=== PATIENT | male | born 1945 | race Caucasian/White ===

== ENCOUNTER 2019-11-07 09:40 | Emergency (ER) | payer MEDICARE, SELFPAY ==
[2019-11-07 09:46] VITALS: BP 96/64; PULSE 104; RESP 16; TEMP 37.2; O2SAT 99
--- NOTE | 2019-11-07 09:53 | ED.MALEGU ---
HPI - Male Genitourinary General Chief complaint: Urogenital-Male Stated complaint: prostrate infection Time Seen by Provider: 11/07/19 09:53 Source: patient Mode of arrival: ambulatory Limitations: no limitations History of Present Illness HPI Narrative: Jose Guadalupe Bella is a 73 yo male with a PMH of HTN, chronic anticoagulation, A. fib , rheumatoid arthritis, gout,who comes to express care for complaints of prostate infection and dizziness. Patient started having urinary symptoms last evening usually has problem with poor strength of flow and pain- and sees a urologist; he states that is a recurrence of his symptoms for him and had similar symptoms last year Related Data Home Medications Medication Instructions Recorded Confirmed Embrel 11/07/19 Htn Medication 11/07/19 Xarelto 11/07/19 Allergies Allergy/AdvReac Type Severity Reaction Status Date / Time No Known Allergies Allergy Verified 11/07/19 10:06 Review of Systems Review of Systems: Narrative: CONSTITUTIONAL: Denies fever, chills, sweats. EYES: Denies visual changes, redness, discharge. ENT: Denies rhinorrhea, congestion, sore throat, otalgia. CARDIOVASCULAR: Denies chest pain, palpitations, edema. RESPIRATORY: Denies dyspnea, wheezing, cough GASTROINTESTINAL: Denies abdominal pain, nausea, vomiting, diarrhea. GENITOURINARY: Has dysuria, no hematuria, abnormal discharge SKIN: Denies rash or itching. NEUROLOGIC: Denies numbness, or focal weakness. PSYCHIATRIC: Denies anxiety or depression. PMFSH Family History Family History (Updated 11/07/19 @ 10:10 by Betsy Beverly CNP) Other Heart disease Hypertension Social History Social History (Updated 11/07/19 @ 10:11 by Betsy Beverly CNP) Smoking status: Former smoker Alcohol intake: current Comments At time of signature, I agree with nursing past medical, surgical, social and family history. There is no relevant family history pertinent to the presenting complaint. Exam Narrative: Exam Narrative: GENERAL: This is a well-nourished, well-developed patient, in mild distress. HEAD: normocephalic, atraumatic. EYES: Sclera clear/white. Vision is grossly intact. EARS: External ears normal, auditory canals clear and without drainage, TMs normal without perforation. Hearing grossly intact. NOSE: External nose normal without nasal discharge, nares without redness, no rhinorrhea. THROAT: Mucous membranes moist, posterior pharynx NECK: Neck supple, non-tender CARDIOVASCULAR: Tachycardic rate and rhythm without murmurs, gallops, or rubs. Patient is also hypotensive RESPIRATORY: Clear to auscultation. Breath sounds equal bilaterally. No wheezes, rales, or rhonchi. GASTROINTESTINAL: Abdomen soft, non-tender, SKIN: warm, intact with no suspicious lesions or rash, good texture and turgor. NEURO: awake, alert, and oriented to person, place and time. There were no obvious focal neurologic abnormalities. Steady gait EXTREMITIES: Normal range of motion. BACK: Nontender without deformity Course Course Emergency Course: UA-m results show blood and urine along with positive for nitrite and leukocyte Started on ciprofloxacin Patient is hypotensive and needs at least IV fluids patient is being referred to the emergency room Vital Signs Vital signs: Vital Signs Temperature 98.9 F 11/07/19 09:46 Pulse Rate 104 H 11/07/19 09:46 Respiratory Rate 16 11/07/19 09:46 Blood Pressure 96/64 L 11/07/19 09:46 Pulse Oximetry 99 11/07/19 09:46 Temperature 98.9 F 11/07/19 09:46 Pulse Rate 104 H 11/07/19 09:46 Respiratory Rate 16 11/07/19 09:46 Blood Pressure 96/64 L 11/07/19 09:46 Pulse Oximetry 99 11/07/19 09:46 MDM - Male Genitourinary Differential Diagnosis Differential diagnosis: Likely urinary tract infection, prostatitis and other Lab Data Labs: Urine Glucose Negative Reference Range: Negative Urine Bilirubin Nega
[2019-11-07 09:56] VITALS: BP 94/64; PULSE 100
== END 2019-11-07 10:25 | disposition short-term general hospital (02) ==
PROVIDERS: Emergency Provider Nurse Practitioner; PCP Family Medicine
DX: N30.01 Acute cystitis with hematuria (principal); Z87.891 Personal history of nicotine dependence; I10 Essential (primary) hypertension; I48.91 Unspecified atrial fibrillation; M06.9 Rheumatoid arthritis, unspecified; M10.9 Gout, unspecified; Z79.01 Long term (current) use of anticoagulants
CPT/HCPCS: 81003; 87077; 87086; 87088; 87186; 99213; G0463

== ENCOUNTER 2019-11-07 11:20 | Emergency (ER) | payer MEDICARE, SELFPAY ==
--- NOTE | ~2019-11-07 | XR_ITS ---
EXAMINATION: XR chest 2V DATE: 11/07/2019 12:16 INDICATION: Lightheadedness. Urinary tract infection. TECHNIQUE: Frontal and lateral views of the chest were obtained. COMPARISON: Chest single view 03/15/2016, chest CT 03/22/2016 FINDINGS: A calcified right lung nodule and calcified right hilar lymph nodes are consistent with old granulomatous disease. No pleural effusion or pneumothorax. The heart size is normal. There is a pro minent left paracardial fat pad. There is mild chronic anterior wedging of multiple thoracic vertebra l bodies. IMPRESSION: 1. No acute cardiopulmonary disease. Reviewed, dictated and finalized at location A.
[2019-11-07 11:26] VITALS: BP 127/82; PULSE 83; RESP 18; TEMP 37.4; O2SAT 99
--- NOTE | 2019-11-07 11:50 | ECG_ITS ---
Measurements Intervals [place] Rate: 93 P: SC: 0 QRS: -38 QRSD: 113 T: 216 QT: 346 QTc: 432 Interpretive Statements ATRIAL FIBRILLATION LEFT AXIS DEVIATION INCOMPLETE RIGHT BUNDLE BRANCH BLOCK BASELINE WANDER- I, II ,AVR, AVL, AVF, V1-V3 ABNORMAL ECG Electronically Signed On 11-07-2019 12:46:49 CDT by Khris Decker D.O.
[2019-11-07 12:03] VITALS: BP 116/84; BP 117/82; PULSE 90; PULSE 96
[2019-11-07 12:04] VITALS: BP 116/84; PULSE 92
[2019-11-07 12:21] LABS: Basophils Absolute Auto 0.1 K/mm3 (0.0-0.1); Basophils Percent Auto 0.3 % (0.2-1.2); Hematocrit 46.7 % (42.0-52.0); Hemoglobin 15.8 g/dL (14.0-18.0); Immature Granulocyte Percent A 0.9 % (0-0.5); Lymphocytes Absolute Auto 0.74 K/mm3 (0.9-3.2); Lymphocytes Percent Auto 3.3 % (18.3-44.2); Mean Corpuscular HGB Conc 33.8 g/dl (32-36); Mean Corpuscular Hemoglobin 33.1 pg (26-34); Mean Corpuscular Volume 97.9 fl (80-100); Monocytes Absolute Auto 2.4 K/mm3 (0.1-0.6); Neutrophils Absolute Auto 18.6 K/mm3 (1.3-6.7); Neutrophils Percent Auto 84.5 % (45.5-73.1); Platelet Count Result 169 k/mm3 (150-375); Red Blood Count 4.77 M/mm3 (4.6-6.20); Red Cell Distribution Width 13.5 % (11.5-14.5); White Blood Count 22.1 K/mm3 (4.5-10.0)
--- NOTE | 2019-11-07 12:21 | ED.MALEGU ---
HPI - Male Genitourinary General Chief complaint: Urogenital-Male <Lis Bella PA-C - Last Filed: 11/07/19 14:01> Stated complaint: hypotension, possible uti from UC <ERMA Mccloud Last Filed: 11/07/19 14:01> Time Seen by Provider: 11/07/19 11:42 <ERMA Mccloud Last Filed: 11/07/19 14:01> Source: patient <ERMA Mccloud Last Filed: 11/07/19 14:01> Mode of arrival: ambulatory <ERMA Mccloud Last Filed: 11/07/19 14:01> Limitations: no limitations <ERMA Mccloud Last Filed: 11/07/19 14:01> History of Present Illness HPI Narrative: This is a 73-year-old male that presents the emergency department for urinary tract infection. Reports he was seen at urgent care this morning and sent here for further evaluation due to low blood pressure. Reports since yesterday he has had urinary frequency and dysuria. Also reports he is felt lightheaded today. Reports he has not eaten anything yet today. Denies fever, chest pain, shortness of breath, abdominal pain, vomiting, or hematuria. <ERMA Mccloud Last Filed: 11/07/19 14:01> Related Data Home medications: Home Medications Medication Instructions Recorded Confirmed Embrel 11/07/19 Htn Medication 11/07/19 Xarelto 11/07/19 <ERMA Mccloud Last Filed: 11/07/19 14:01> Allergies/Adverse reactions: Allergies Allergy/AdvReac Type Severity Reaction Status Date / Time No Known Allergies Allergy Verified 11/07/19 11:34 <ERMA Mccloud Last Filed: 11/07/19 14:01> Review of Systems Review of Systems: Narrative: CONSTITUTIONAL: Denies fever CARDIOVASCULAR: Denies chest pain RESPIRATORY: Denies dyspnea. GASTROINTESTINAL: Denies abdominal pain, nausea, vomiting GENITOURINARY: Reports dysuria. Denies hematuria. <ERMA Mccloud Last Filed: 11/07/19 14:01> All systems reviewed & are unremarkable except as noted in HPI and below <Lis Bella PA-C - Last Filed: 11/07/19 14:01> PMFSH Past Medical History Medical History: Medical History (Updated 11/07/19 @ 13:59 by Lis Bella PA-C) A-fib Rheumatoid arthritis <Lis Bella PA-C - Last Filed: 11/07/19 14:01> Family History Family History: Family History (Updated 11/07/19 @ 10:10 by Betsy Beverly CNP) Other Heart disease Hypertension <Lis Bella PA-C - Last Filed: 11/07/19 14:01> Social History Social History: Social History (Updated 11/07/19 @ 10:11 by Betsy Beverly CNP) Smoking status: Former smoker Alcohol intake: current Gender identity (if verbalized by the patient): Male <Lis Bella PA-C - Last Filed: 11/07/19 14:01> Exam Narrative: Exam Narrative: GENERAL: Well-appearing, well-nourished, and in no acute distress. HEAD: Normocephalic, atraumatic. EYES: PERRLA and EOMI. ENT: Nares clear, no rhinorrhea or epistaxis. Mucous membranes moist. Oropharynx without tonsillar hypertrophy exudate or other lesions. Bilateral TMs pearly schofield non-bulging NECK: Supple. No adenopathy or masses. CHEST: Clear to auscultation. No respiratory distress. No wheezes rales or rhonchi HEART: Regular rate and rhythm. No murmur heard. Normal peripheral pulses. ABDOMEN: Soft, nontender, nondistended, normal active bowel sounds. EXTREMITIES: Normal range of motion. No edema. Strength equal in bilateral upper extremities (5/5) SKIN: Warm, dry, no rash. NEURO: No focal deficits. Alert and oriented x3. Cranial nerves II through XII grossly intact PSYCH: Normal mood and affect <Lis Bella PA-C - Last Filed: 11/07/19 14:01> Course Consultations Consultation #1: I did speak with patient's on-call urologist about workup. Patient is to follow-up in clinic on Saturday. <Lis Bella PA-C - Last Filed: 11/07/19 14:01> Date: 11/07/19 <Lis Bella PA-C - Last Filed: 11/07/19 14:01> Time: 13:59 <Lis Schneider
[2019-11-07 12:25] LABS: Add Urine Microscopic? YES; Appearance Urine Cloudy (Clear); Bacteria Urine Trace /hpf; Bilirubin Urine Negative (Negative); Blood Urine 1+ (Negative); Color Urine Amber (Yellow); Glucose Urine UA Negative (Negative); Ketones Urine Negative (Negative); Leukocyte Esterase Ur 1+ LEU/UL (Negative); Mucus Urine Rare /lpf; Nitrate Urine Positive (Negative); Protein Urine 1+ mg/dL (Negative); Specific Grav Ur 1.014 (1.001-1.035); Squamous Epithelial Cell Urine Occasional /hpf (Few); Urobilinogen Urine Negative mg/dL (<2.0); WBC Urine 21-30 /hpf
[2019-11-07 12:31] LABS: Lactic Acid Reflex 1.3 mmol/L (0.7-2.1)
[2019-11-07 12:37] LABS: Anion Gap 7 mmol/L (8-16); Blood Urea Nitrogen 27 mg/dL (9-20); CRP 7.4 mg/dL (<1.0); Calcium 9.4 mg/dL (8.4-10.2); Carbon Dioxide 23 mmol/L (22-30); Chloride 105 mmol/L (98-107); Estimated CRCL calculation 47 ml/min; Estimated Glomerular Filt Rate 46; Glucose 156 mg/dL (75-110); Potassium 4.4 mmol/L (3.4-5.0); Sodium 135 mmol/L (137-145)
[2019-11-07] MEDS: SODIUM CHLORIDE 0.9% IV 1,000 ML 999 ML IV CONT (13:18)
== END 2019-11-07 14:19 | disposition home or self-care (01) ==
PROVIDERS: Physician Assistant; Emergency Provider General Practice; PCP Family Medicine
DX: N41.0 Acute prostatitis (principal); Z87.891 Personal history of nicotine dependence; B96.20 Unspecified Escherichia coli [E. coli] as the cause of diseases classified elsewhere
CPT/HCPCS: 36415; 71046; 80048; 81001; 81003; 83605; 85025; 86140; 87040; 87077; 87086; 87088; 87186; 93005; 96365; 99284; J1956; J7030

== ENCOUNTER 2020-04-07 09:02 | Emergency (ER) | payer MEDICARE, SELFPAY ==
--- NOTE | 2020-04-07 09:04 | ED.GENADULT ---
HPI - General Adult General Chief complaint: Syncope Stated complaint: Poss uti Time Seen by Provider: 04/07/20 09:04 Source: patient Mode of arrival: ambulatory Limitations: no limitations History of Present Illness HPI narrative: 74-year-old male patient presents to the [facility] with complaints of weakness and urinary symptoms. Patient states that he has had a little bit of frequency and a little bit of pain with urination and yesterday he got very weak and fell. Denies any loss of consciousness or hitting his head but states he did hit his left side of his ribs. Patient states that he tends to get weakness like this whenever he has a prostate infection and has been treated for this before in the past. Patient also has a history of A. fib states he is in constant A. fib but denies any chest pain or shortness of breath at this time. Denies any lightheadedness, dizziness. Denies any fevers, body aches or chills. Patient states he was given Augmentin antibiotic by his urologist and instructed to take that whenever his symptoms of prostate infection started. Last time patient was seen and they both also [facility] for similar symptoms they did start him on Cipro and send him to the ER for further evaluation. The ER did want to admit him for IV antibiotics however he refused due to the fact that he has a that has dementia. Related Data Home Medications Medication Instructions Recorded Confirmed Embrel 11/07/19 Htn Medication 11/07/19 Xarelto 11/07/19 Allergies Allergy/AdvReac Type Severity Reaction Status Date / Time No Known Allergies Allergy Verified 11/07/19 11:34 Review of Systems Review of Systems: Narrative: CONSTITUTIONAL: Denies fever, chills, or sweats. EYES: Denies visual changes, redness, or discharge. ENT: Denies rhinorrhea, congestion, sore throat, or otalgia. CARDIOVASCULAR: Denies chest pain, palpitations, or edema. RESPIRATORY: Denies cough or dyspnea. GASTROINTESTINAL: Denies abdominal pain, nausea, vomiting, or diarrhea. GENITOURINARY: Positive dysuria, denies gross hematuria. Positive frequency SKIN: Denies rash or itching. MUSCULOSKELETAL: Denies back pain, joint pain, or myalgia. NEUROLOGIC: Denies headache, numbness, positive weakness with fall PSYCHIATRIC: Denies anxiety or depression. [facility] Past Medical History Medical History (Updated 04/07/20 @ 09:58 by PAU Gorman) A-fib Chronic anticoagulation Gout Hypertension Rheumatoid arthritis Family History Family History Other Heart disease Hypertension Social History Social History Smoking status: Former smoker Alcohol intake: current Gender identity (if verbalized by the patient): Male Comments At the time of my signature I agree with nursing past medical history, surgical, social, and family history. There is no relevant family history pertinent to the presenting complaint. Exam Narrative: Exam Narrative: GENERAL: Well-appearing, well-nourished, and in no acute distress. HEAD: Normocephalic, atraumatic. EYES: PERRLA and EOMI. ENT: Nares clear, no rhinorrhea or epistaxis. Mucous membranes moist. NECK: Supple. No lymphadenopathy CHEST: Clear to auscultation. No respiratory distress. Patient has left-sided anterior rib tenderness noted over the eighth ninth and 10th rib. HEART: irRegular rate and rhythm. No murmur heard. Normal peripheral pulses. ABDOMEN: Soft, nontender, nondistended, normal active bowel sounds. EXTREMITIES: Normal range of motion. No edema. SKIN: Warm, dry, no rash. NEURO: Alert and oriented x4, GCS 15. Cranial nerves II through XII grossly intact. No focal neurological deficits. Normal muscle strength and tone. Normal deep tendon reflexes. Negative Babinski, normal finger to nose coordination he had normal heel to balbuena glide. Speech is clear. Normal gait. Negative Romberg and no
[2020-04-07 09:08] VITALS: BP 96/76; PULSE 62; RESP 20; TEMP 36.2; O2SAT 100
--- NOTE | 2020-04-07 09:14 | ECG_ITS ---
Measurements Intervals [place] Rate: 94 P: CO: 0 QRS: -52 QRSD: 101 T: 38 QT: 351 QTc: 441 Interpretive Statements ATRIAL FIBRILLATION LEFT ANTERIOR FASCICULAR BLOCK BASELINE ARTIFACT- I, II, AVR, AVL, AVF, V6 ABNORMAL ECG Electronically Signed On 04-28-2020 11:47:37 SITE SPECIALIST by Khris Decker D.O.
== END 2020-04-07 09:55 | disposition short-term general hospital (02) ==
PROVIDERS: Emergency Provider Nurse Practitioner Family; PCP Family Medicine
DX: R53.1 Weakness (principal); R35.0 Frequency of micturition; R30.0 Dysuria; I48.91 Unspecified atrial fibrillation; Z79.01 Long term (current) use of anticoagulants; M10.9 Gout, unspecified; I10 Essential (primary) hypertension; M06.9 Rheumatoid arthritis, unspecified; Z87.891 Personal history of nicotine dependence
CPT/HCPCS: 81003; 87086; 93005; 99213; G0463

== ENCOUNTER 2020-04-07 10:59 | Observation (INO) | payer MEDICARE, SELFPAY ==
[2020-04-07] VITALS (38 sets, daily range): BP systolic 102–143; BP diastolic 75–99; PULSE 65–114; RESP 12–20; TEMP 35.7–37.4; O2SAT 96–100; BMI 27.5
--- NOTE | ~2020-04-07 | XR_ITS ---
EXAMINATION: XR ribs LT 2V w CXR 2V INDICATION: Left chest pain after fall TECHNIQUE: PA and lateral views of the chest and 3 views of the left ribs were obtained. COMPARISON: 11/10/2019; CT, 03/22/2016 FINDINGS: The lungs are free of acute opacities. There is no pleural effusion or pneumothorax. A calc ified nodule of the right middle lobe is consistent with old granulomatous disease. The cardiomediast inal silhouette is normal. There is mild thoracic spondylosis. When compared to prior CT examination, old fractures of the left fourth through sixth ribs are noted. No definite acute rib fracture is stan ntified. IMPRESSION: 1. No acute cardiopulmonary abnormality or evidence of acute displaced rib fracture. Reviewed, dictated and finalized at location A. HING CUTTER IMPRESSION: 1. No acute cardiopulmonary abnormality or evidence of acute displaced rib frac ture.
--- NOTE | ~2020-04-07 | US_ITS ---
EXAMINATION: US carotid duplex BI DATE: 04/08/2020 11:17 INDICATION: Syncope. TECHNIQUE: Grayscale, color Doppler, and pulsed Doppler images of the cervical carotid arteries were obtained. The degree of vessel stenosis is placed in one of the following categories: normal, <50%, 5 0-69%, >=70% but less than near-occlusion, near-occlusion, or total occlusion. Note that percent sten osis relative to normal distal artery lumen diameter is indirectly measured from velocity measurement s as described by Ishan, et al. Radiology 2003; 229:340-346. COMPARISON: None. FINDINGS: RIGHT: The right common carotid artery (CCA) peak systolic velocity (PSV) is 63 cm/s. The right internal car otid artery (ICA) PSV is 59 cm/s. The right ICA end-diastolic velocity (EDV) is 25 cm/s. The right IC A/CCA PSV ratio is 1.0. Grayscale and color Doppler images yield an estimate of <50% diameter reducti on from plaque in the ICA. There is antegrade flow in the right vertebral artery. LEFT: The left CCA PSV is 46 cm/s. The left ICA PSV is 50 cm/s. The left ICA EDV is 27 cm/s. The left ICA/C CA PSV ratio is 1.1. Grayscale and color Doppler images yield an estimate of <50% diameter reduction from plaque in the ICA. There is antegrade flow in the left vertebral artery. IMPRESSION: 1. <50% stenosis in the right internal carotid artery. 2. <50% stenosis in the left internal carotid artery. Reviewed, dictated and finalized at location A. ICATION DISTRIBUTOR
--- NOTE | ~2020-04-07 | CT_ITS ---
EXAMINATION: CT abdomen pelvis w con EXAM DATE: 04/07/2020 14:07 INDICATION: Left-sided abdominal pain. States fell yesterday. TECHNIQUE: Spiral CT of the abdomen and pelvis was performed following intravenous injection of 100 m L Omnipaque 350. Axial, coronal and sagittal images were reviewed. The dose-length product (DLP) fo r this examination was 1195.26 mGy-cm. The exposure was tailored according to patient size (auto mA exposure control), and iterative reconstruction (ASIR) was used as additional dose reduction techniqu e. There is no prior study for comparison. FINDINGS: The liver, spleen, adrenal glands and pancreas are unremarkable. Gallbladder is unremarkab le. No biliary obstruction. Numerous renal cysts bilaterally, could indicate autosomal dominant roberto carlos ycystic kidney disease, with the right kidney measuring 20 cm in craniocaudal dimension and the left measuring 22 cm. No hydronephrosis. The prostate is unremarkable. The bladder is unremarkable. The re is no retroperitoneal or pelvic lymphadenopathy. There is moderate scattered arteriosclerotic di sease. Possible identification of an unremarkable appendix. No pericecal inflammation. There is small to mo derate-sized gastroesophageal hiatal hernia. There is mild to moderate sigmoid colonic diverticulosis . There is no adjacent inflammatory change to suggest diverticulitis. There is expected amount of co lonic stool. No free intraperitoneal gas. The heart is normal in size. There are no pericardial or pleural effusions. The lung bases are unremarkable. Possible acute nondisplaced left 6th and 7th rib fractures anterolaterally. IMPRESSION: 1. Possible acute nondisplaced left 6th and 7th rib fractures anterolaterally. 2. Enlarged multicystic kidneys could indicate autosomal dominant polycystic kidney disease. 3. Small gastroesophageal hiatal hernia. 4. Mild to moderate sigmoid diverticulosis. Reviewed, dictated and finalized at location B. AL ECONOMIST IMPRESSION: 1. Possible acute nondisplaced left 6th and 7th rib fractures anterolaterally. 2. Enlarged multicystic kidneys could indicate autosomal dominant polycystic k idney disease. 3. Small gastroesophageal hiatal hernia. 4. Mild to moderate sigmoid diverticulosis.
--- NOTE | ~2020-04-07 | CT_ITS ---
EXAMINATION: CT brain wo con DATE: 04/07/2020 17:55 INDICATION: Follow-up post syncopal episode with persistent weakness TECHNIQUE: Computed tomography (CT) of the head was performed without intravenous contrast. Sagittal and coronal reconstructions were performed. The mA was adjusted according to patient size. Iterative reconstruction technique was employed. The dose-length product was 681.00 mGy-cm. COMPARISON: None FINDINGS: No fracture. No acute intracranial hemorrhage, acute infarction or abnormal extra axial fluid collect ion. Symmetric prominence of the sulci and arachnoid spaces overlying the convexities consistent with mild age-appropriate diffuse cerebral volume loss. Ventricles are normal and symmetric. No mass/mass effect. Mild mucosal thickening the bilateral ethmoid and right maxillary sinuses. The orbits and ma stoid air cells are normal. Intracranial calcified cerebral atherosclerosis is noted. IMPRESSION: 1. Diffuse mild likely age-related cerebral volume loss. No fracture or acute intracranial process. Reviewed, dictated and finalized at location A. NSIGNMENT CLERK IMPRESSION: 1. Diffuse mild likely age-related cerebral volume loss. No fracture or acute i ntracranial process.
--- NOTE | 2020-04-07 11:14 | ECG_ITS ---
Measurements Intervals [place] Rate: 86 P: [place]: 0 QRS: -54 QRSD: 101 T: 29 QT: 354 QTc: 425 Interpretive Statements ATRIAL FIBRILLATION LEFT AXIS DEVIATION RSR' IN V1 OR V2, CONSIDER RIGHT VENTRICULAR HYPERTROPHY OR RIGHT VCD ABNORMAL ECG Electronically Signed On 04-07-2020 11:32:31 TERRITORY SERVICE REPRESENTATIVE by Khris Decker D.O.
[2020-04-07 11:51] LABS: Anion Gap 9 mmol/L (8-16); Blood Urea Nitrogen 32 mg/dL (9-20); Calcium 9.2 mg/dL (8.4-10.2); Carbon Dioxide 23 mmol/L (22-30); Chloride 104 mmol/L (98-107); Estimated CRCL calculation 41 ml/min; Estimated Glomerular Filt Rate 40; Glucose 119 mg/dL (75-110); Sodium 136 mmol/L (137-145)
[2020-04-07 12:08] LABS: Basophils Absolute Auto 0.1 K/mm3 (0.0-0.1); Basophils Percent Auto 1.2 % (0.2-1.2); Eosinophils Absolute Auto 0.5 K/mm3 (0-0.3); Hematocrit 48.5 % (42.0-52.0); Hemoglobin 16.2 g/dL (14.0-18.0); Immature Granulocyte Absolute 0.17 K/mm3 (0.00-0.031); Immature Granulocyte Percent A 2.2 % (0-0.5); Lymphocytes Absolute Auto 1.13 K/mm3 (0.9-3.2); Lymphocytes Percent Auto 14.8 % (18.3-44.2); Mean Corpuscular HGB Conc 33.4 g/dl (32-36); Mean Corpuscular Hemoglobin 32.8 pg (26-34); Mean Corpuscular Volume 98.2 fl (80-100); Mean Platelet Volume 10.2 fl (7.4-10.4); Monocytes Absolute Auto 1.8 K/mm3 (0.1-0.6); Monocytes Percent Auto 23.8 % (2.6-8.5); Platelet Count Result 171 k/mm3 (150-375); Red Blood Count 4.94 M/mm3 (4.6-6.20); Red Cell Distribution Width 13.5 % (11.5-14.5); White Blood Count 7.6 K/mm3 (4.5-10.0)
--- NOTE | 2020-04-07 12:35 | PC.NURSE ---
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 states he does remember feeling weak just prior to LOC. denies head injury. does have some rib pain. alert. oriented. hx of 2 previous episodes, 1 in 2019 and 1 in 2019. no actual diagnosis. hx of afib and RA.
--- NOTE | 2020-04-07 12:50 | PC.NURSE ---
SL inserted. labs drawn. patient on cardiac technologist. call light in reach. nephew in room now. updated on current treatment plan.
--- NOTE | 2020-04-07 12:50 | PC.NURSE ---
IVF started. has order for orthostatic vitals. patient updated.
[2020-04-07] MEDS: SODIUM CHLORIDE 0.9% IV 1,000 ML 999 ML IV CONT ×2 (13:02→15:15)
[2020-04-07 13:24] LABS: CRP 0.5 mg/dL (<1.0)
[2020-04-07 15:12] LABS: Add Urine Microscopic? YES; Appearance Urine Clear (Clear); Bilirubin Urine Negative (Negative); Blood Urine Negative (Negative); Color Urine Yellow (Yellow); Glucose Urine UA Negative (Negative); Ketones Urine Negative (Negative); Leukocyte Esterase Ur Negative LEU/UL (Negative); Nitrate Urine Negative (Negative); Protein Urine 1+ mg/dL (Negative); Specific Grav Ur 1.016 (1.001-1.035); Squamous Epithelial Cell Urine Occasional /hpf (Few); Urobilinogen Urine Negative mg/dL (<2.0); WBC Urine 0-3 /hpf
--- NOTE | 2020-04-07 15:20 | PC.NURSE ---
2nd liter of NS started per order. will recheck orthostatic vitals after completed. more ice water given. denies any other needs.
--- NOTE | 2020-04-07 16:52 | PC.NURSE ---
2nd orthostatic vitals done and documented. nephew still in room. waiting for further orders from provider vs disposition.
--- NOTE | 2020-04-07 17:03 | ED.DIZZY ---
HPI - Dizziness General Chief Complaint: Syncope Stated Complaint: Syncope Time Seen by Provider: 04/07/20 12:43 Source: patient Mode of arrival: ambulatory Limitations: no limitations History of Present Illness HPI Narrative: Patient is 74-year-old male who presents with family from urgent care for evaluation of weakness fatigue and syncope patient was with a friend yesterday and had syncope falling to the ground and has since had left rib pain. Patient denies similar occurrence in the past. Patient denies any recent illness vomiting diarrhea. Patient thought he might potentially have a prostate issue and started taking antibiotic prophylactically. Patient denies any urinary symptoms. Patient notes moderate aching pain to the left ribs worse with activity and movement. Patient notes that his pain seems to be worse with movement also he experiences worsening fatigue and dizziness with standing Related Data Home Medications Medication Instructions Recorded Confirmed allopurinol 300 mg PO DAILY 04/07/20 04/07/20 enalapril maleate 10 mg PO QPM 04/07/20 04/07/20 enalapril maleate 20 mg PO QAM 04/07/20 04/07/20 etanercept [Enbrel] 50 mg SUBCUT WEEKLY 04/07/20 04/07/20 metoprolol tartrate 50 mg PO DAILY 04/07/20 04/07/20 omega 4-qxs-dyd-fish oil [Fish Oil] 1 cap PO DAILY 04/07/20 04/07/20 omeprazole 20 mg PO DAILY 04/07/20 04/07/20 rivaroxaban [Xarelto] 15 mg PO DAILY 04/07/20 04/07/20 tamsulosin 0.4 mg PO DAILY 04/07/20 04/07/20 vitamin E (dl, acetate) 400 unit PO DAILY 04/07/20 04/07/20 Allergies Allergy/AdvReac Type Severity Reaction Status Date / Time No Known Allergies Allergy Verified 04/07/20 10:36 Review of Systems Review of Systems: All systems reviewed & are unremarkable except as noted in HPI and below PMFSH Past Medical History Medical History A-fib Chronic anticoagulation Gout Hypertension Rheumatoid arthritis Family History Family History Other Heart disease Hypertension Social History Social History Smoking status: Former smoker Alcohol intake: current Gender identity (if verbalized by the patient): Male Exam Narrative: Exam Narrative: GENERAL: Well-appearing, well-nourished, and in no acute distress. HEAD: Normocephalic, atraumatic. EYES: PERRLA and EOMI. ENT: Nares clear, no rhinorrhea or epistaxis. Mucous membranes moist. NECK: Supple. No adenopathy or masses. CHEST: Clear to auscultation. No respiratory distress. No wheezes rales or rhonchi. Tenderness of the anterior left lateral lower ribs HEART: Irregularly irregular rate and rhythm. No murmur heard. Normal peripheral pulses. ABDOMEN: Soft, left upper abdomen tenderness to palpation remainder of abdomen nontender, nondistended, normal active bowel sounds. EXTREMITIES: Normal range of motion. No edema. SKIN: Warm, dry, no rash. NEURO: No focal deficits. Alert and oriented x3. Cranial nerves II through XII grossly intact. Normal speech PSYCH: Normal mood and affect. Course Course Emergency Course: Patient in the room aware of case findings treatment plan and diagnosis patient will be kept overnight for observation on telemetry floor given the syncope and collapse and continuing to feel weak with standing and ambulation no high risk changes in the evaluation patient obviously a fall risk given the fractured ribs. ABCs and vital signs intact and stable at this time. Patient is orthostatic after hydration Consultations Consultation #1: Discussed case with Brittnee the hospitalist who is agreed to accept the patient Date: 04/07/20 Time: 17:16 Vital Signs Vital signs: Vital Signs Temperature 96.3 F L 04/07/20 11:25 Pulse Rate 95 04/07/20 11:25 Respiratory Rate 18 04/07/20 11:25 Blood Pressure 115/99 H 04/07/20 11:25 Pulse Oximetry 100 04/07/20
--- NOTE | 2020-04-07 17:30 | PC.NURSE ---
provider planning for admission. patient is aware.
--- NOTE | 2020-04-07 18:04 | PC.NURSE ---
patient assigned to RECONCILIATION MACHINE OPERATOR-4. SBAR completed and faxed and tubed to RECONCILIATION MACHINE OPERATOR.
--- NOTE | 2020-04-07 18:35 | PC.NURSE ---
report called to Prachi VÁSQUEZ in the [facility]. patient room 4 via wheelchair and monitor. all belongings sent with patient.
--- NOTE | 2020-04-07 20:30 | ADMGEN ---
This patient, Jose Guadalupe Samuels, was admitted to [facility]- at approx 1845. Patient/family oriented to hospital policies and general routines including ID bracelet, bed and alarms, visiting hours, pain management, procedures, bathroom and other care routines, personal items, smoking policy, room service/diet, and visiting hours. Information on how to activate the Rapid Response Team has been discussed. Patient/Family are encouraged to report perceived risks to care and to ask questions if they do not understand what they are told or what they should do.
[2020-04-07] MEDS: FAMOTIDINE 20 MG/2 ML VIAL IV PUSH (21:18)
[2020-04-08] VITALS: PULSE 61
--- NOTE | 2020-04-08 02:27 | PM.IMHP ---
H&P: HPI History of Present Illness Date/Time: 04/08/20 02:27 Chief Complaint: Passed out 2 days ago. Narrative: This is a 74 year old male with known chronic atrial fibrillation on chronic Xarelto therapy, HTN, and GERD who presented to the hospital from Urgent Care secondary to suffering a syncopal episode 2 days ago. The patient was doing a survey on a property with his work partner and was standing outside when suddenly he started to feel very nauseated and passed out. His friend who was with him told him that he was poorly responsive for only a few moments. The patient does not believe that he completely passed out but he wasn't totally certain. He denies any seizure like activity, tongue biting, or loss of urine. The patient believed that he might have a UTI because in the past he had similar symptoms of feeling dizzy, nauseated, weak, and fatigued when he had a UTI. The patient did take 3 doses of Augmentin since suffering his syncopal episode as he believed he might have a UTI. The patient denies any overt dysuria, hematuria, urinary frequency or urgency. Since suffering his syncopal episode the patient has had left costal pain which is worse with any movement. On my encounter with him he denies any headache, fevers, chills, coughing, shortness of breath, anterior chest pain, abdominal pain, dysuria, hematuria, diarrhea, rectal bleeding or leg swelling. No other complaints. Review of Systems Review of Systems: All systems reviewed & are unremarkable except as noted in HPI and below PMFSH Past Medical History Medical History A-fib Chronic anticoagulation GERD (gastroesophageal reflux disease) Gout Hypertension Rheumatoid arthritis Family History Family History Other Heart disease Hypertension Social History Social History Smoking packs per day: 2 Smoking cigarettes per day: 40.0 Years smoked: 30 Smoking pack-years: 60.00 Smoking status: Former smoker Tobacco type: cigarettes Alcohol intake: current Drinks per week: 3 Substance use: never Substance use type: does not use Gender identity (if verbalized by the patient): Male Spiritual care concerns: No Comments past surgical history is reviewed and noncontributory. Meds Home Medications and Allergies Home Medications Medication Instructions Recorded Confirmed Type allopurinol 300 mg PO DAILY 04/07/20 04/07/20 History enalapril maleate 10 mg PO QPM 04/07/20 04/07/20 History enalapril maleate 20 mg PO QAM 04/07/20 04/07/20 History etanercept [Enbrel] 50 mg SUBCUT WEEKLY 04/07/20 04/07/20 History metoprolol tartrate 25 mg PO BID 04/07/20 04/07/20 History omega 9-swn-kox-fish oil [Fish Oil] 1 cap PO DAILY 04/07/20 04/07/20 History omeprazole 20 mg PO DAILY 04/07/20 04/07/20 History rivaroxaban [Xarelto] 15 mg PO QACDINNER 04/07/20 04/07/20 History tamsulosin 0.4 mg PO DAILY 04/07/20 04/07/20 History vitamin B complex [B 1 tablet PO DAILY 04/07/20 04/07/20 History Complex-Vitamin B12] vitamin E (dl, acetate) 400 unit PO DAILY 04/07/20 04/07/20 History Allergies Allergy/AdvReac Type Severity Reaction Status Date / Time No Known Allergies Allergy Verified 04/07/20 10:36 Vital Signs Vital Signs - 24 hr 04/07/20 11:25 04/07/20 12:25 04/07/20 12:26 Temperature 35.7 C L Pulse Rate 95 69 77 Respiratory Rate 18 17 14 Blood Pressure 115/99 H 116/85 Pulse Oximetry 100 99 100 04/07/20 12:30 04/07/20 12:31 04/07/20 12:32 Temperature Pulse Rate 68 70 75 Respiratory Rate 18 18 Blood Pressure 111/83 Pulse Oximetry 99 99 04/07/20 12:46 04/07/20 12:47 04/07/20 13:00 Temperature Pulse Rate 65 71 74 Respiratory Rate 14 16 16 Blood Pressure 102/76 Pulse Oximetry 98 97 97 04/07/20 13:19 04/07/20 13:31 04/07/20 14:32 Temperatur
--- NOTE | 2020-04-08 02:55 | ECHO_ITS ---
Patient Info Name: Jose Guadalupe Samuels Age: 74 years : 1945 Gender: Male Ht: 74 in Wt: 214 lbs BSA: 2.26 m2 HR: 81 bpm BP: 119 / 79 mmHg Heart Rhythm: Atrial Fibrillation Technical Quality: Good Exam Date: 04/08/2020 9:09 AM Exam Location: [facility] Pul[facility] Patient Status: Inpatient Admit Date: 04/07/2020 Staff Ordering Physician: Trung Shepard MD Beauty Specialist: Addison Hobbs, THIAGOCS, RT Attending Provider: Graham Roche MD Referring Physician: Drea ARMSTRONG; Exam Type: CA echo dop color flow w con Study Info Indications R55 - Syncope and collapse Complete two-dimensional, color flow and Doppler transthoracic echocardiogram is performed. Summary 1. Complete two-dimensional, color flow and Doppler transthoracic echocardiogram is performed. 2. Left ventricular systolic function is mildly reduced, estimated at 45-50%. 3. There is mildly increased left ventricular wall thickness. 4. Left atrial chamber dimension is moderately enlarged. 5. Right atrial chamber dimension is mildly enlarged. 6. There is no aortic valve stenosis. 7. There is mild mitral valve regurgitation. 8. No pulmonary hypertension, estimated pulmonary arterial systolic pressure is 26 mmHg. Left Ventricle Left ventricular chamber dimension is normal. Left ventricular systolic function is mildly reduced, estimated at 45-50%. There is mildly increased left ventricular wall thickness. The left ventricular diastolic function is indeterminate. Right Ventricle Right ventricular chamber dimension is normal. Right ventricular systolic function is normal. Left Atria Left atrial chamber dimension is moderately enlarged. Right Atria Right atrial chamber dimension is mildly enlarged. Aortic Valve The aortic valve is not well visualized. There is mild aortic valve sclerosis. There is no aortic valve stenosis. There is trace aortic valve regurgitation. Pulmonic Valve The pulmonic valve is not well visualized. Mitral Valve The mitral valve has thickened leaflets. There is mild mitral valve regurgitation. The mitral valve annulus is mildly calcified. Tricuspid Valve The tricuspid valve leaflets are normal. There is mild tricuspid valve regurgitation. No pulmonary hypertension, estimated pulmonary arterial systolic pressure is 26 mmHg. Pericardium/Pleural The pericardium appears normal. There is trivial pericardial effusion. Aorta The aortic root size at the sinus of Valsalva is normal. There is mild-moderate aortic atherosclerosis. Left Ventricular Outflow Tract Name Value Normal LVOT 2D LVOT Diameter 2.14 cm LVOT Doppler LVOT Peak Gradient 2 mmHg LVOT Mean Gradient 1 mmHg LVOT VTI 15.72 cm LVOT VTI/AV VTI Ratio 0.60 LVOT Stroke Volume 56.76 ml LVOT CO 4.74 l/min LVOT CI 2.09 L/min/m2 Mitral Valve Name
[2020-04-08 04:00] VITALS: PULSE 50
[2020-04-08 04:50] VITALS: BP 119/79; PULSE 68; RESP 16; TEMP 35.9; O2SAT 96
[2020-04-08] MEDS: LACTATED RINGERS 1,000 ML 100 ML IV CONT (04:50)
[2020-04-08 05:41] LABS: Basophils Percent Auto 0.9 % (0.2-1.2); Hematocrit 43.6 % (42.0-52.0); Hemoglobin 14.7 g/dL (14.0-18.0); Immature Granulocyte Absolute 0.08 K/mm3 (0.00-0.031); Immature Granulocyte Percent A 1.8 % (0-0.5); Lymphocytes Absolute Auto 1.39 K/mm3 (0.9-3.2); Lymphocytes Percent Auto 30.6 % (18.3-44.2); Mean Corpuscular HGB Conc 33.7 g/dl (32-36); Mean Corpuscular Hemoglobin 32.6 pg (26-34); Mean Corpuscular Volume 96.7 fl (80-100); Mean Platelet Volume 9.8 fl (7.4-10.4); Monocytes Percent Auto 21.4 % (2.6-8.5); Neutrophils Absolute Auto 2.1 K/mm3 (1.3-6.7); Neutrophils Percent Auto 45.3 % (45.5-73.1); Platelet Count Result 151 k/mm3 (150-375); Red Blood Count 4.51 M/mm3 (4.6-6.20); Red Cell Distribution Width 13.3 % (11.5-14.5); White Blood Count 4.5 K/mm3 (4.5-10.0)
[2020-04-08 06:08] LABS: Troponin I < 0.012 ng/mL (0.000-0.034)
[2020-04-08 06:15] LABS: Anion Gap 5 mmol/L (8-16); Blood Urea Nitrogen 26 mg/dL (9-20); Calcium 8.5 mg/dL (8.4-10.2); Carbon Dioxide 24 mmol/L (22-30); Chloride 111 mmol/L (98-107); Estimated CRCL calculation 58 ml/min; Estimated Glomerular Filt Rate 60; Glucose 97 mg/dL (75-110); Potassium 4.1 mmol/L (3.4-5.0); Sodium 140 mmol/L (137-145)
[2020-04-08 08:00] VITALS: BP 147/86; PULSE 76; PULSE 78; RESP 16; RESP 25; TEMP 37; O2SAT 98
[2020-04-08 08:50] LABS: Free T4 Free Thyroxine Reflex 0.85 ng/dL (0.78-2.19)
[2020-04-08] MEDS: TAMSULOSIN HCL 0.4 MG CAPSULE PO (09:46)
[2020-04-08] MEDS: VITAMIN E 400 UNIT CAPSULE PO (09:46)
[2020-04-08] MEDS: OMEGA 3 POLYUNSAT FATTY ACIDS 1 GM CAP PO (09:46)
[2020-04-08] MEDS: VITAMIN B COMPLEX CAPSULE 1 CAP PO (09:46)
[2020-04-08] MEDS: PANTOPRAZOLE 40 MG TABLET PO (09:46)
[2020-04-08] MEDS: allopurinoL 300 MG TABLET PO (09:46)
--- NOTE | 2020-04-08 11:09 | PM.DS ---
DS: Admitting Diagnosis Admitting Diagnosis Admitting Diagnosis: Syncope DS: Discharge Diagnosis Discharge Diagnosis (1) Rib pain on left side: Code(s): R07.81 - Pleurodynia Status: Acute Assessment and Plan: CT scan shows fracture of the rib pain control follow-up with PCP most likely related to fall (2) GERD (gastroesophageal reflux disease): Qualifiers: Esophagitis presence: esophagitis presence not specified Qualified Code(s): K21.9 - Gastro-esophageal reflux disease without esophagitis Code(s): K21.9 - Gastro-esophageal reflux disease without esophagitis Status: Chronic Assessment and Plan: CT scan shows hiatus hernia follow-up with PCP (3) Chronic atrial fibrillation: Code(s): I48.20 - Chronic atrial fibrillation, unspecified Status: Chronic Assessment and Plan: Continue anticoagulation (4) Renal failure: Qualifiers: Renal failure chronicity: unspecified chronicity Qualified Code(s): N19 - Unspecified kidney failure Code(s): N19 - Unspecified kidney failure Status: Acute Assessment and Plan: Most likely acute related to dehydration treated with IV fluids resolved CT scan concerning for polycystic kidney follow-up with PCP for further workup (5) Syncope and collapse: Code(s): R55 - Syncope and collapse Status: Acute Assessment and Plan: Most likely related to dehydration and orthostatic hypotension give IV fluid decrease the dose of enalapril (6) Chronic anticoagulation: Code(s): Z79.01 - terminal manager (current) use of anticoagulants Status: Acute Assessment and Plan: Continue home medication (7) Abnormal CT scan: Code(s): R93.89 - Abnormal findings on diagnostic imaging of other specified body structures Status: Acute Assessment and Plan: Follow-up with PCP abnormal CT scan shows polycystic kidney other anomaly as noted please review full report of the CT scan DS: Summary Hospital Course Hospital Course: Patient was admitted to the hospital with syncope chest pain was found to have fracture of ribs secondary to fall syncope most likely related to dehydration and acute renal failure patient was treated with IV fluid follow-up with PCP as outpatient follow-up on the results of the echo CT scan of the abdomen shows anomalies of the kidney follow-up with PCP Time Spent with Patient Time attestation: Total time spent providing and/or coordinating discharge services: Exam Narrative: Exam Narrative: Short physical exam DS: Data Data Completed and Pending Labs on day of discharge: Labs from last 24 hours 04/08/20 04/08/20 04/08/20 05:31 05:31 05:31 WBC RBC Hgb Hct MCV MCH MCHC RDW Plt Count MPV Immature Gran % (Auto) Neut % (Auto) Lymph % (Auto) [place] % (Auto) Eos % (Auto) Baso % (Auto) Lymph # (Auto) [place] # (Auto) Eos # (Auto) Baso # (Auto) Abs Immat Gran (auto) Absolute Neuts (auto) Absolute Nucleated RBC Nucleated RBC % Sodium Potassium Chloride Carbon Dioxide Anion Gap BUN Creatinine Estim Creat Clear Calc Estimated GFR Glucose Lactic Acid Calcium Troponin I < 0.012 C-Reactive Protein TSH (Reflex) Free T4 0.85 Total T3 Pending Urine Color Urine Appearance Urine pH Ur Specific Media Urine Protein Urine Glucose (UA) Urine Ketones Ur Blood (Man) Urine Nitrate Urine Bilirubin Urine Urobilinogen Leukocyte Esterase Rfl Urine WBC Ur Squamous Epith Cells Hyaline Casts 04/08/20 04/08/20 04/08/20 05:31 05:31 05:31 WBC 4.5 RBC 4.51 L Hgb 14.7 Hct 43.6 MCV 96.7 MCH 32.6 MCHC 33.7 RDW 13.3 Plt Count 151 MPV 9.8 Immature Gran % (Auto) 1.8 H Neut % (Auto) 45.3 L Lymph % (Auto) 30.6 [place] % (Auto) 21.4 H Eos % (
[2020-04-08] MEDS: PERFLUTREN LIPID MICROSPHERES 1.5 ML VIAL DILUTED TO 10 ML TOTAL VOLUME IV PUSH (12:50)
[2020-04-08 14:39] LABS: Total Triiodothyronine (T3) 0.86 NG/ML (0.97-1.69)
== END 2020-04-08 12:30 | disposition home or self-care (01) ==
LOC: ANHED 17:10 → ANHCPC 04-08 10:54
PROVIDERS: Emergency Medicine Emergency Medical Services; Family Medicine; Admitting Provider Internal Medicine; Emergency Provider Emergency Medicine; PCP Family Medicine; Visit Provider Internal Medicine
DX: R55 Syncope and collapse (principal); K21.9 Gastro-esophageal reflux disease without esophagitis; I48.20 Chronic atrial fibrillation, unspecified; N19 Unspecified kidney failure; Z79.01 Long term (current) use of anticoagulants; R93.89 Abnormal findings on diagnostic imaging of other specified body structures; R07.81 Pleurodynia; Z87.891 Personal history of nicotine dependence; I48.91 Unspecified atrial fibrillation; Z79.899 Other long term (current) drug therapy
CPT/HCPCS: 36415; 70450; 71046; 71100; 74177; 80048; 81001; 81003; 83605; 84439; 84443; 84480; 84484; 85025; 86140; 87086; 93005; 93880; 96361; 96365; 96375; 97161; 97165; 99285; A9270; C8929; G0378; J0131; J7030; J7120; Q9957; Q9967

== ENCOUNTER 2020-04-13 14:38 | Inpatient (IN) | payer MEDICARE, SELFPAY ==
[2020-04-13] VITALS (11 sets, daily range): BP systolic 94–121; BP diastolic 60–80; PULSE 77–101; RESP 15–24; TEMP 36.8–37.7; O2SAT 95–99
--- NOTE | ~2020-04-13 | XR_ITS ---
EXAMINATION: XR chest 2V DATE: 04/14/2020 10:26 INDICATION: Fever. Tachypnea. TECHNIQUE: Frontal and lateral views of the chest were obtained. COMPARISON: Chest 2 views 04/07/2020 FINDINGS: A calcified right lung nodule is consistent with old granulomatous disease. There are airsp svitlana opacities in posterior segment right upper lobe, consistent with pneumonia. No pleural effusion o r pneumothorax. The heart size is normal. There is an old healed left rib fracture. IMPRESSION: 1. Right upper lobe pneumonia. Reviewed, dictated and finalized at location B. RNAL RECRUITER
--- NOTE | 2020-04-13 14:52 | ECG_ITS ---
Measurements Intervals Tangent Rate: 78 P: IA: 0 QRS: -46 QRSD: 114 T: 26 QT: 348 QTc: 399 Interpretive Statements ATRIAL FIBRILLATION LEFT AXIS DEVIATION INTRAVENTRICULAR CONDUCTION DELAY BASELINE ARTIFACT- I, II, AVR ABNORMAL ECG Electronically Signed On 04-13-2020 15:08:52 DUCK FARMER by Khris Decker D.O.
[2020-04-13] MEDS: SODIUM CHLORIDE 0.9% IV 1,000 ML 999 ML IV CONT ×2 (15:11→15:56)
[2020-04-13 15:23] LABS: Basophils Percent Auto 0.7 % (0.2-1.2); Eosinophils Percent Auto 0.5 % (0-4.4); Hematocrit 45.2 % (42.0-52.0); Hemoglobin 15.2 g/dL (14.0-18.0); Immature Granulocyte Absolute 0.12 K/mm3 (0.00-0.031); Immature Platelet Fraction Pct 4.8 % (0.9-11.2); Lymphocytes Absolute Auto 0.85 K/mm3 (0.9-3.2); Lymphocytes Percent Auto 14.3 % (18.3-44.2); Mean Corpuscular HGB Conc 33.6 g/dl (32-36); Mean Corpuscular Hemoglobin 33.4 pg (26-34); Mean Corpuscular Volume 99.3 fl (80-100); Monocytes Absolute Auto 1.1 K/mm3 (0.1-0.6); Neutrophils Absolute Auto 3.8 K/mm3 (1.3-6.7); Neutrophils Percent Auto 64.5 % (45.5-73.1); Platelet Count Result 132 k/mm3 (150-375); Red Blood Count 4.55 M/mm3 (4.6-6.20); Red Cell Distribution Width 13.1 % (11.5-14.5)
[2020-04-13 15:34] LABS: Anion Gap 7 mmol/L (8-16); Blood Urea Nitrogen 36 mg/dL (9-20); Calcium 8.9 mg/dL (8.4-10.2); Carbon Dioxide 21 mmol/L (22-30); Chloride 108 mmol/L (98-107); Estimated CRCL calculation 35 ml/min; Estimated Glomerular Filt Rate 35; Glucose 72 mg/dL (75-110); Potassium 4.2 mmol/L (3.4-5.0); Sodium 136 mmol/L (137-145)
[2020-04-13 15:34] LABS: Lactic Acid Reflex 1.7 mmol/L (0.7-2.1)
[2020-04-13 15:37] LABS: Alanine Aminotransferase 19 U/L (4-50); Albumin Level 3.6 g/dL (3.5-5.1); Alkaline Phosphatase 56 U/L (38-126); Aspartate Amino Transferase 40 U/L (17-59); Bilirubin,Total 0.4 mg/dL (0.2-1.3)
--- NOTE | 2020-04-13 15:53 | ED.SYNCOPE ---
HPI - Syncope General Chief Complaint: Syncope Stated Complaint: syncope Time Seen by Provider: 04/13/20 14:49 Source: patient Mode of arrival: ambulatory Limitations: no limitations History of Present Illness HPI narrative: This patient is a 74 year old female with history of hypertension, afib, chronic anticoagulation who presents for evaluation of syncopal episode. He was admitted over night 1 week ago for syncope. He states he was found to be dehydrated, so he was hydrated and sent home. He states that he has still felt weak since discharged. Today he states he sitting down and he was witnessed to have passed out. He states he felt like he was going to pass out . He denies chest pain, shortness of breathing or palpitations. He reports his blood pressure was in the 90s this morning so he only took 10 mg enalapril. He states he checks his blood pressure every morning before he takes his blood pressure medications. MD complaint: loss of consciousness Related Data Home Medications Medication Instructions Recorded Confirmed Enbrel 50 mg SUBCUT WEEKLY 04/07/20 04/13/20 Xarelto 15 mg PO QACDINNER 04/07/20 04/13/20 allopurinol 300 mg PO DAILY 04/07/20 04/13/20 enalapril maleate See Rx Instructions .ROUTE .COMPLEX 04/07/20 04/13/20 metoprolol tartrate 25 mg PO BID 04/07/20 04/13/20 omega 1-huf-xfa-fish oil [Fish Oil] 1 cap PO DAILY 04/07/20 04/13/20 omeprazole 20 mg PO DAILY 04/07/20 04/13/20 tamsulosin 0.4 mg PO DAILY 04/07/20 04/13/20 vitamin B complex [B 1 tablet PO DAILY 04/07/20 04/13/20 Complex-Vitamin B12] vitamin E (dl, acetate) 400 unit PO DAILY 04/07/20 04/13/20 Flex-A-Min 1 tablet PO DAILY 04/13/20 04/13/20 Tylenol 650 mg PO PRN PRN 04/13/20 04/13/20 Allergies Allergy/AdvReac Type Severity Reaction Status Date / Time No Known Allergies Allergy Verified 04/13/20 18:38 Review of Systems Review of Systems: All systems reviewed & are unremarkable except as noted in HPI and below Constitutional: Constitutional: Denies chills and Denies fever(s) Cardiovascular: Cardiovascular: Denies chest pain and Denies rapid heart rate Respiratory: Respiratory: Denies cough and Denies dyspnea Gastrointestinal: Gastrointestinal: Denies abdominal pain Neurologic: Reports syncope and Denies headache(s) PMFSH Past Medical History Medical History (Updated 04/13/20 @ 22:54 by Tayla Lind MD) A-fib Chronic anticoagulation GERD (gastroesophageal reflux disease) Gout Hypertension Rheumatoid arthritis Surgical History Surgical History (Updated 04/13/20 @ 20:11 by Brittnee Lombardo NP) No pertinent past surgical history Family History Family History (Updated 04/13/20 @ 20:14 by Brittnee Lombardo NP) Mother Hypertension Heart disease Father Heart disease Hypertension Social History Social History (Updated 04/13/20 @ 20:16 by Brittnee Lombardo NP) Social History: The patient is . His nephew Leno Worthington as well as niece Kristi Worthington are the durable power civil litigation attorney for the patient. The is currently in rehab for her severe dementia. The patient has no children. The patient desires to be a DNI. He stated that he did not want to be on a ventilator even feels for brief period time. Patient is a former smoker he quit 1998. He does not use any alcohol or illicit drugs. 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 Smoking packs per day: 2 Smoking cigarettes per day: 40.0 Years smoked: 30 Smoking pack-years: 60.00 Smoking status: Former smoker Tobacco type: cigarettes Alcohol intake: current Drinks per week: 3 Substance use: never Substance use type: does not use Gender identity (if verbalized by the patient): Male Sexual Orientation (if Verbalized by the Patient): Straight or Heterosexual Spiritual care concerns: No Exam Narrative: Exam Narrative: GENERAL: Well-appearing, well-nourished, and in no acute distress. HEAD: Normocephalic, atraumatic
--- NOTE | 2020-04-13 18:24 | ADMGEN ---
This patient, Jose Guadalupe Samuels, was admitted to Medical Room 247-. Patient/family oriented to hospital policies and general routines including ID bracelet, bed and alarms, visiting hours, pain management, procedures, bathroom and other care routines, personal items, smoking policy, room service/diet, and visiting hours. Information on how to activate the Rapid Response Team has been discussed. Patient/Family are encouraged to report perceived risks to care and to ask questions if they do not understand what they are told or what they should do.
[2020-04-13] MEDS: SODIUM CHLORIDE 0.9% IV 1,000 ML 125 ML IV CONT (19:01)
--- NOTE | 2020-04-13 19:46 | PM.IMHP ---
H&P: HPI History of Present Illness Date/Time: 04/13/20 19:46 Chief Complaint: Syncope and collapse Narrative: Jose Guadalupe Samuels is a 74 year old male who was admitted on 04/08/2020 because he had passed out the a couple days prior to that. The patient has chronic atrial fibrillation is on chronic Xarelto therapy. His hypertension and GERD. The patient was given IV fluids the last time and he was treated for UTI and discharged the next day. It was noted that the patient should have his enalapril decreased. However the patient continued to take his medication. The patient stated that he takes his blood pressure every day and when his systolic blood pressures less than 100 that he hold his enalapril. Lactic was normal. Last admission his creatinine bumped up to 1.7 as well. I explained to the patient that he needs to get off of the enalapril. It is not good for his kidneys and he does not appear to be doing very well with it. The patient stated that he has been taking it for a long time and they had increased his dosage however his kidney functions do not look well with it. Today he was sitting down Down and he was witnessed to have passed out. He felt like he was going to pass out any did. The patient stated that his blood pressure was low and he held his enalapril today. He stated that there are many days that he does hold due to the low blood pressure. Blood pressure was 101/75 in the emergency room. He did not appear to have orthostasis. Patient was given IV fluids in the emergency room and he did well as long as he had the IV fluids on but once a took his IV fluids off then his blood pressure dropped again. Date of service of 04/13/2020. Patient is admitted into observation. Review of Systems Review of Systems: All systems reviewed & are unremarkable except as noted in HPI and below Constitutional: Constitutional: Reports as per HPI and Reports no additional constitutional complaints Eyes: Eyes: Reports as per HPI and Reports no additional eye complaints ENT: Reports system reviewed and no additional complaints, except as documented and Reports Normal hearing present Cardiovascular: Cardiovascular: Reports no additional cardiovascular complaints Respiratory: Respiratory: Reports no additional respiratory complaints and Reports no additional respiratory complaints Gastrointestinal: Gastrointestinal: Reports as per HPI and Reports no additional gastrointestinal complaints Musculoskeletal: Musculoskeletal: Reports no additional musculoskeletal complaints Integumentary/Breasts: Skin/Breast: Reports system reviewed and no additional complaints, except as docu and Reports as per HPI Neurologic: Reports system reviewed and no additional complaints, except as documented, Reports as per HPI and Reports Normal hearing present Psychiatric: Psychiatric: Reports no additional psychiatric complaints and Reports as per HPI Endocrine: Endocrine: Reports no additional endocrine complaints Hematologic/Lymphatic: Hematologic/Lymphatic: Reports no additional hematologic/lymphatic complaints Allergic/Immunologic: Allergic/Immunologic: Reports no additional allergic/immunologic complaints [facility] Past Medical History Medical History (Updated 04/13/20 @ 20:21 by Brittnee Lombardo NP) A-fib Chronic anticoagulation GERD (gastroesophageal reflux disease) Gout Hypertension Rheumatoid arthritis Surgical History Surgical History (Updated 04/13/20 @ 20:11 by Brittnee Lombardo NP) No pertinent past surgical history Family History Family History (Updated 04/13/20 @ 20:14 by Brittnee Lombardo NP) Mother Hypertension Heart disease Father Heart disease Hypertension Social History Social History (Updated 04/13/20 @ 20:16 by Brittnee Lombardo NP) Social History: The patient is . His nephew Leno Worthington as well as niece Kristi Worthington are the durable power commonwealth attorney for the patient. The is currently in rehab for her sev
[2020-04-13] MEDS: RIVAROXABAN 15 MG TABLET PO (20:33)
[2020-04-14] VITALS (14 sets, daily range): BP systolic 109–137; BP diastolic 67–90; PULSE 72–122; RESP 14–20; TEMP 36.2–37.6; O2SAT 94–99; BMI 28.8
[2020-04-14] MEDS: SODIUM CHLORIDE 0.9% IV 1,000 ML 125 ML IV CONT (04:22)
[2020-04-14 05:35] LABS: Basophils Percent Auto 0.3 % (0.2-1.2); Eosinophils Percent Auto 0.3 % (0-4.4); Hematocrit 40.5 % (42.0-52.0); Hemoglobin 13.8 g/dL (14.0-18.0); Immature Granulocyte Absolute 0.04 K/mm3 (0.00-0.031); Immature Granulocyte Percent A 1.3 % (0-0.5); Immature Platelet Fraction Pct 3.6 % (0.9-11.2); Lymphocytes Absolute Auto 0.82 K/mm3 (0.9-3.2); Lymphocytes Percent Auto 26.9 % (18.3-44.2); Mean Corpuscular HGB Conc 34.1 g/dl (32-36); Mean Corpuscular Hemoglobin 33.1 pg (26-34); Mean Corpuscular Volume 97.1 fl (80-100); Mean Platelet Volume 11.1 fl (7.4-10.4); Monocytes Absolute Auto 0.6 K/mm3 (0.1-0.6); Neutrophils Absolute Auto 1.6 K/mm3 (1.3-6.7); Neutrophils Percent Auto 52.2 % (45.5-73.1); Platelet Count Result 105 k/mm3 (150-375); Red Blood Count 4.17 M/mm3 (4.6-6.20); Red Cell Distribution Width 12.8 % (11.5-14.5); White Blood Count 3.1 K/mm3 (4.5-10.0)
[2020-04-14 05:41] LABS: Alanine Aminotransferase 16 U/L (4-50); Alkaline Phosphatase 51 U/L (38-126); Anion Gap 4 mmol/L (8-16); Aspartate Amino Transferase 28 U/L (17-59); Bilirubin,Total 0.5 mg/dL (0.2-1.3); Blood Urea Nitrogen 23 mg/dL (9-20); Carbon Dioxide 20 mmol/L (22-30); Chloride 113 mmol/L (98-107); Estimated CRCL calculation 50 ml/min; Estimated Glomerular Filt Rate 54; Glucose 96 mg/dL (75-110); Lactate Dehydrogenase 299 U/L (313-618); Magnesium 1.3 mg/dL (1.6-2.3); Potassium 4.1 mmol/L (3.4-5.0); Sodium 137 mmol/L (137-145)
[2020-04-14 07:29] LABS: Free T4 Free Thyroxine Reflex 0.96 ng/dL (0.78-2.19)
[2020-04-14 08:17] LABS: Total Triiodothyronine (T3) 0.86 NG/ML (0.97-1.69)
[2020-04-14] MEDS: VITAMIN E 400 UNIT CAPSULE PO (08:47)
[2020-04-14] MEDS: PANTOPRAZOLE 40 MG TABLET PO (08:47)
[2020-04-14] MEDS: VITAMIN B COMPLEX CAPSULE 1 CAP PO (08:47)
[2020-04-14] MEDS: TAMSULOSIN HCL 0.4 MG CAPSULE PO (08:47)
[2020-04-14] MEDS: OMEGA 3 POLYUNSAT FATTY ACIDS 1 GM CAP PO (08:47)
[2020-04-14] MEDS: allopurinoL 300 MG TABLET PO (08:47)
[2020-04-14] MEDS: METOPROLOL TARTRATE 25 MG TABLET PO ×2 (10:48→23:02)
--- NOTE | 2020-04-14 12:54 | PM.IMPN ---
Progress Note: A&P Assessment and Plan (1) Syncope and collapse: Code(s): R55 - Syncope and collapse Status: Acute Assessment and Plan: He had an episode of syncope while eating lunch, shortly after getting up to go to the bathroom. he was admitted to the hospital 1 week ago for syncopal episode as well. At that time, felt to be related to dehydration. I suspect his recent episode was related to orthostasis. it appears that he has underlying infection, which likely caused dehydration. His blood pressures here have not met criteria for true orthostasis, but he was hypotensive. He has been taking his enalapril, although it appears that he was instructed to discontinue this medication. He reports dizziness and lightheadedness, especially upon standing. He had head CT, echo, and carotid Doppler upon last hospital stay which were all negative. Continue IV fluid rehydration; cautious hydration given possible pneumonia/covid-19. hold enalapril fall precautions monitor clinically add Ricky hose monitor orthostatic blood pressures each shift (2) Community acquired pneumonia: Code(s): J18.9 - Pneumonia, unspecified organism Status: Acute Assessment and Plan: Patient had low-grade fever with T-max 99.8?. CXR showed right upper lobe pneumonia. He endorses cough but denies any other respiratory symptoms. He has mild leukopenia. Denies any known COVID positive contacts. Aspiration pneumonia considered given right upper lobe location, however patient denies dysphagia and this seems less likely. He is maintaining adequate oxygen saturation air. Begin Rocephin and azithromycin blood cultures pending will check urinary pneumococcal and Legionella antigens supportive care to include bronchodilators, expectorants, and antipyretics supplemental oxygen as needed with goal saturation 90% or above COVID-19 test pending, influenza pending (3) Person under investigation for COVID-19: Code(s): Z20.822 - Contact with and (suspected) exposure to COVID-19 Status: Acute Assessment and Plan: denies known COVID-19 positive contacts. Endorses cough but no other respiratory symptoms. Denies anosmia or dysgeusia. He has low-grade fever, mild leukopenia, elevated ferritin and CRP. COVID-19 test pending. begin isolation precautions plan as above. If patient tests positive, antibiotics can be discontinued no indication for initiation of COVID specific treatment at this time given lack of supplemental oxygen requirements. trend acute phase reactants (4) Chronic atrial fibrillation: Code(s): I48.20 - Chronic atrial fibrillation, unspecified Status: Chronic Assessment and Plan: Persistent. EKG and review of telemetry demonstrates that he is currently in atrial fibrillation. Rate is controlled. Continue metoprolol and Xarelto telemetry can be discontinued (5) Rheumatoid arthritis: Qualifiers: Rheumatoid arthritis location: unspecified site Rheumatoid factor presence: unspecified presence Qualified Code(s): M06.9 - Rheumatoid arthritis, unspecified Code(s): M06.9 - Rheumatoid arthritis, unspecified Status: Chronic Assessment and Plan: Pain controlled at this time. He is on weekly Enbrel injections. Enbrel is non formulary. Tylenol available as needed for pain. (6) Hypertension: Qualifiers: Hypertension type: unspecified Qualified Code(s): I10 - Essential (primary) hypertension Code(s): I10 - Essential (primary) hypertension Status: Chronic Assessment and Plan: blood pressure evaluated and demonstrates the patient is hypotensive. This is improving following IV fluid rehydration. Last BP 109/82. As above, enalapril will be discontinued. Continue metoprolol which is needed for rate control. Monitor blood pressure daily (7) YU (acute kidney
[2020-04-14 13:34] LABS: Add Urine Microscopic? NO; Appearance Urine Clear (Clear); Bilirubin Urine Negative (Negative); Blood Urine Negative (Negative); Color Urine Yellow (Yellow); Glucose Urine UA Negative (Negative); Ketones Urine Negative (Negative); Leukocyte Esterase Ur Negative LEU/UL (Negative); Nitrate Urine Negative (Negative); Protein Urine Negative (Negative); Specific Grav Ur 1.013 (1.001-1.035); Urobilinogen Urine Negative mg/dL (<2.0)
--- NOTE | 2020-04-14 13:34 | PC.NURSE ---
pt transferred to [facility] surg to r/o javon
[2020-04-14] MEDS: SODIUM CHLORIDE 0.9% IV 1,000 ML 75 ML IV CONT (13:40)
[2020-04-14] MEDS: guaiFENesin 12 HR 600 MG TABCR PO ×2 (14:53→23:02)
[2020-04-14] MEDS: RIVAROXABAN 15 MG TABLET PO (17:10)
[2020-04-14 19:02] LABS: Influenza Control Positive
[2020-04-14] MEDS: ALBUTEROL SULFATE (*SP) AEROSOL 1 PUFF 2 PUFF INHALATION ×2 (21:03→23:02)
[2020-04-14 21:45] LABS: SARS-CoV-2 RNA PCR Positive
[2020-04-15] VITALS (13 sets, daily range): BP systolic 98–145; BP diastolic 72–90; PULSE 52–110; RESP 16–22; TEMP 36.2–37.1; O2SAT 96–99
[2020-04-15] MEDS: ALBUTEROL SULFATE (*SP) AEROSOL 1 PUFF 2 PUFF INHALATION ×4 (06:28→20:02)
[2020-04-15] MEDS: SODIUM CHLORIDE 0.9% IV 1,000 ML 75 ML IV CONT (06:28)
[2020-04-15 06:36] LABS: Hematocrit 40.1 % (42.0-52.0); Hemoglobin 13.6 g/dL (14.0-18.0); Immature Granulocyte Absolute 0.04 K/mm3 (0.00-0.031); Immature Granulocyte Percent A 1.4 % (0-0.5); Immature Platelet Fraction Pct 3.7 % (0.9-11.2); Lymphocytes Absolute Auto 0.71 K/mm3 (0.9-3.2); Lymphocytes Percent Auto 24.4 % (18.3-44.2); Mean Corpuscular HGB Conc 33.9 g/dl (32-36); Mean Corpuscular Hemoglobin 32.1 pg (26-34); Mean Corpuscular Volume 94.6 fl (80-100); Mean Platelet Volume 11.6 fl (7.4-10.4); Monocytes Absolute Auto 0.5 K/mm3 (0.1-0.6); Monocytes Percent Auto 17.9 % (2.6-8.5); Neutrophils Absolute Auto 1.6 K/mm3 (1.3-6.7); Neutrophils Percent Auto 55.3 % (45.5-73.1); Platelet Count Result 98 k/mm3 (150-375); Red Blood Count 4.24 M/mm3 (4.6-6.20); Red Cell Distribution Width 12.5 % (11.5-14.5); White Blood Count 2.9 K/mm3 (4.5-10.0)
[2020-04-15 07:01] LABS: Alanine Aminotransferase 16 U/L (4-50); Albumin Level 3.2 g/dL (3.5-5.1); Alkaline Phosphatase 54 U/L (38-126); Anion Gap 5 mmol/L (8-16); Aspartate Amino Transferase 33 U/L (17-59); Bilirubin,Total 0.6 mg/dL (0.2-1.3); Blood Urea Nitrogen 16 mg/dL (9-20); CRP 2.4 mg/dL (<1.0); Calcium 8.2 mg/dL (8.4-10.2); Carbon Dioxide 20 mmol/L (22-30); Chloride 111 mmol/L (98-107); Estimated CRCL calculation 59 ml/min; Estimated Glomerular Filt Rate > 60; Glucose 99 mg/dL (75-110); Lactate Dehydrogenase 348 U/L (313-618); Potassium 3.9 mmol/L (3.4-5.0); Sodium 136 mmol/L (137-145)
[2020-04-15] MEDS: METOPROLOL TARTRATE 25 MG TABLET PO ×2 (09:52→20:02)
[2020-04-15] MEDS: PANTOPRAZOLE 40 MG TABLET PO (09:52)
[2020-04-15] MEDS: guaiFENesin 12 HR 600 MG TABCR PO ×2 (09:52→20:02)
[2020-04-15] MEDS: VITAMIN E 400 UNIT CAPSULE PO (09:52)
[2020-04-15] MEDS: allopurinoL 300 MG TABLET PO (09:52)
[2020-04-15] MEDS: OMEGA 3 POLYUNSAT FATTY ACIDS 1 GM CAP PO (09:52)
[2020-04-15] MEDS: VITAMIN B COMPLEX CAPSULE 1 CAP PO (09:53)
--- NOTE | 2020-04-15 13:55 | PM.IMPN ---
Progress Note: A&P Assessment and Plan (1) Syncope and collapse: Code(s): R55 - Syncope and collapse Status: Acute Assessment and Plan: He presented after an episode of syncope that occurred shortly after getting up to go to the bathroom. He was admitted to the hospital 1 week ago for syncopal episode as well. At that time, felt to be related to dehydration. I suspect his recent episode was related to orthostasis from dehydration, likely worsened by acute infection. He was hypotensive upon presentation but has not been orthostatic. He has been taking his enalapril, although it appears that he was instructed to discontinue this medication. He reports dizziness and lightheadedness, especially upon standing. He had head CT, echo, and carotid Doppler upon last hospital stay which were all negative. Will discontinue IV fluids in light of COVID-19 infection. Patient has been adequately rehydrated and blood pressures have improved. hold enalapril fall precautions monitor clinically continue Ricky hose monitor orthostatic blood pressures each shift (2) Pneumonia due to COVID-19 virus: Code(s): U07.1 - COVID-19; J12.82 - Pneumonia due to coronavirus disease 2019 Status: Acute Assessment and Plan: Tested positive on 04/14/20. He had ow-grade fever with T-max 99.8? but remains afebrile today. CXR showed right upper lobe pneumonia. He endorses cough but denies any other respiratory symptoms. He is leukopenic. He is maintaining adequate oxygen saturation air. isolation precautions initiated IV Rocephin and azithromycin discontinued today following positive COVID test as secondary bacterial infection is unlikely at this time, dexamethasone or Remdesivir not indicated dizzy has no supplemental oxygen requirements supplemental O2 as needed with goal saturation 90% or above supportive care to include bronchodilators, expectorants, and antipyretics trend acute phase reactants blood cultures pending, urinary Legionella and pneumococcal antigens pending. Influenza negative. (3) Chronic atrial fibrillation: Code(s): I48.20 - Chronic atrial fibrillation, unspecified Status: Chronic Assessment and Plan: Persistent. EKG and review of telemetry demonstrates that he is currently in atrial fibrillation. Rate is controlled. Continue metoprolol and Xarelto (4) Rheumatoid arthritis: Qualifiers: Rheumatoid arthritis location: unspecified site Rheumatoid factor presence: unspecified presence Qualified Code(s): M06.9 - Rheumatoid arthritis, unspecified Code(s): M06.9 - Rheumatoid arthritis, unspecified Status: Chronic Assessment and Plan: Pain controlled at this time. He is on weekly Enbrel injections. Enbrel is non formulary. Tylenol available as needed for pain. (5) Hypertension: Qualifiers: Hypertension type: unspecified Qualified Code(s): I10 - Essential (primary) hypertension Code(s): I10 - Essential (primary) hypertension Status: Chronic Assessment and Plan: blood pressure evaluated and demonstrates the patient is hypotensive. This has improved following IV fluid rehydration. Last BP 113/80 As above, enalapril will be discontinued. Continue metoprolol which is needed for rate control. Monitor blood pressure daily (6) YU (acute kidney injury): Code(s): N17.9 - Acute kidney failure, unspecified Status: Acute Assessment and Plan: creatinine elevated at presentation at 1.9. Suspect this is prerenal secondary to dehydration. Improved following IV fluid rehydration. Creatinine 1.1 today. IV fluids discontinued as patient is tolerating oral intake monitor renal function closely and renally dose medications. (7) Thrombocytopenia: Code(s): D69.6 - Thrombocytopenia, unspecified Status: Acute Assessment and Plan: Fel
[2020-04-15] MEDS: RIVAROXABAN 15 MG TABLET PO (17:12)
[2020-04-15] MEDS: ACETAMINOPHEN 325 MG TABLET 650 MG BY MOUTH ×2 (17:14→21:24)
[2020-04-15] MEDS: TAMSULOSIN HCL 0.4 MG CAPSULE PO (20:02)
[2020-04-16] VITALS (9 sets, daily range): BP systolic 106–120; BP diastolic 66–91; PULSE 76–95; RESP 16–22; TEMP 36.2–37; O2SAT 98–100
[2020-04-16] MEDS: ALBUTEROL SULFATE (*SP) AEROSOL 1 PUFF 2 PUFF INHALATION ×2 (02:01→09:33)
[2020-04-16] MEDS: ACETAMINOPHEN 325 MG TABLET 650 MG BY MOUTH ×3 (02:01→09:32)
[2020-04-16 07:07] LABS: Basophils Percent Auto 0.3 % (0.2-1.2); Eosinophils Percent Auto 0.3 % (0-4.4); Hemoglobin 14.5 g/dL (14.0-18.0); Immature Granulocyte Absolute 0.04 K/mm3 (0.00-0.031); Immature Granulocyte Percent A 1.3 % (0-0.5); Lymphocytes Absolute Auto 0.58 K/mm3 (0.9-3.2); Lymphocytes Percent Auto 18.8 % (18.3-44.2); Mean Corpuscular HGB Conc 34.5 g/dl (32-36); Mean Corpuscular Volume 95.5 fl (80-100); Monocytes Absolute Auto 0.5 K/mm3 (0.1-0.6); Monocytes Percent Auto 15.3 % (2.6-8.5); Platelet Count Result 106 k/mm3 (150-375); Red Cell Distribution Width 12.5 % (11.5-14.5); White Blood Count 3.1 K/mm3 (4.5-10.0)
[2020-04-16 07:20] LABS: Alanine Aminotransferase 18 U/L (4-50); Albumin Level 3.3 g/dL (3.5-5.1); Alkaline Phosphatase 58 U/L (38-126); Anion Gap 5 mmol/L (8-16); Aspartate Amino Transferase 34 U/L (17-59); Bilirubin,Total 0.6 mg/dL (0.2-1.3); Blood Urea Nitrogen 16 mg/dL (9-20); CRP 3.7 mg/dL (<1.0); Calcium 8.6 mg/dL (8.4-10.2); Carbon Dioxide 21 mmol/L (22-30); Chloride 111 mmol/L (98-107); Estimated CRCL calculation 59 ml/min; Estimated Glomerular Filt Rate > 60; Glucose 104 mg/dL (75-110); Lactate Dehydrogenase 392 U/L (313-618); Potassium 3.8 mmol/L (3.4-5.0); Sodium 137 mmol/L (137-145)
[2020-04-16] MEDS: PANTOPRAZOLE 40 MG TABLET PO (09:32)
[2020-04-16] MEDS: METOPROLOL TARTRATE 25 MG TABLET PO (09:32)
[2020-04-16] MEDS: allopurinoL 300 MG TABLET PO (09:33)
[2020-04-16] MEDS: guaiFENesin 12 HR 600 MG TABCR PO (09:33)
[2020-04-16] MEDS: OMEGA 3 POLYUNSAT FATTY ACIDS 1 GM CAP PO (09:33)
--- NOTE | 2020-04-16 13:34 | PM.DS ---
DS: Admitting Diagnosis Admitting Diagnosis Admitting Diagnosis: Syncope DS: Discharge Diagnosis Discharge Diagnosis (1) Syncope and collapse: Code(s): R55 - Syncope and collapse Status: Acute Assessment and Plan: He presented after an episode of syncope that occurred shortly after standing up on 04/13. He was also admitted to the hospital 1 week prior for syncopal episode as well. At that time, felt to be related to dehydration. I suspect his recent episode was related to hypotension, likely worsened by dehydration from acute infection. He was hypotensive upon presentation but was not orthostatic. He had been taking his enalapril, although it appears that he was instructed to discontinue this medication. He endorsed dizziness and lightheadedness, especially upon standing which resolved following IV fluid rehydration and addition of MARSHA hose. He had head CT, echo, and carotid Doppler upon last hospital stay which were all negative. His enalapril was discontinued to prevent hypotension. Fall precautions initiated during hospital stay and discussed upon discharge. Also discussed importance of staying adequately hydrated. Blood pressures improved significantly and well-controlled at time of discharge. (2) Pneumonia due to COVID-19 virus: Code(s): U07.1 - COVID-19; J12.82 - Pneumonia due to coronavirus disease 2019 Status: Acute Assessment and Plan: Tested positive on 04/14/20. He had low-grade fever with T-max 99.8? which resolved and he remained afebrile >48 hours. CXR showed right upper lobe pneumonia. He had leukopenia. He maintained adequate oxygen saturation on room air and did not require supplemental oxygen. He was started on IV Rocephin and azithromycin upon presentation which was discontinued following positive COVID test as secondary bacterial infection felt to be unlikely. He was not a candidate for dexamethasone or Remdesivir as he had no oxygen requirements. Preliminary blood culture showed NGTD. He did not develop respiratory symptoms. I suspect that both of his episodes of syncope were related to dehydration from acute infection, therefore suspect symptom onset to be 04/06. Given symptom onset >10 days, he no longer requires isolation. We did discuss the importance of still wearing a mask, social distancing, and other COVID precautions. (3) Chronic atrial fibrillation: Code(s): I48.20 - Chronic atrial fibrillation, unspecified Status: Chronic Assessment and Plan: Persistent. EKG and review of telemetry demonstrated that he was in atrial fibrillation. Rate remained controlled. Continue metoprolol and Xarelto (4) Rheumatoid arthritis: Qualifiers: Rheumatoid arthritis location: unspecified site Rheumatoid factor presence: unspecified presence Qualified Code(s): M06.9 - Rheumatoid arthritis, unspecified Code(s): M06.9 - Rheumatoid arthritis, unspecified Status: Chronic Assessment and Plan: Pain was controlled. He is on weekly Enbrel injections. (5) Hypertension: Qualifiers: Hypertension type: unspecified Qualified Code(s): I10 - Essential (primary) hypertension Code(s): I10 - Essential (primary) hypertension Status: Chronic Assessment and Plan: Blood pressure was monitored closely. He was hypotensive on arrival but this improved with rehydration. His enalapril was discontinued and his blood pressures were controlled without the use of this antihypertensive medication. He will continue metoprolol as this is needed for rate control. I encouraged him to monitor his BP 3-4 times weekly and record for PCP review. (6) YU (acute kidney injury): Code(s): N17.9 - Acute kidney failure, unspecified Status: Acute Assessment and Plan: Creatinine elevated at presentation at 1.9. Suspect this was prerenal secondary to dehydration. Improved following IV fluid rehydration. Cre
[2020-04-16 22:00] LABS: Pneumococcal Antigen Urine Not Detected (Not Detected)
[2020-04-19 03:13] LABS: Legionella pneumophila Ag Ur Not Detected (Not Detected)
== END 2020-04-16 14:40 | disposition home or self-care (01) | DRG 177 ==
LOC: ANHED 15:33 → ANH2MED 17:19 → ANH3MEDSUR 04-14 13:12
PROVIDERS: Nurse Practitioner; Physician Assistant; Admitting Provider Internal Medicine; Emergency Provider General Practice; PCP Family Medicine; Visit Provider Internal Medicine
DX: U07.1 COVID-19 (principal); J12.82 Pneumonia due to coronavirus disease 2019; N17.9 Acute kidney failure, unspecified; I48.20 Chronic atrial fibrillation, unspecified; D61.818 Other pancytopenia; I10 Essential (primary) hypertension; E86.0 Dehydration; I95.1 Orthostatic hypotension; M10.9 Gout, unspecified; N40.0 Benign prostatic hyperplasia without lower urinary tract symptoms; M06.9 Rheumatoid arthritis, unspecified
CPT/HCPCS: 36415; 71046; 80048; 80053; 80076; 81003; 82728; 83605; 83615; 83735; 84439; 84443; 84480; 85025; 85055; 86140; 87040; 87449; 87804; 87899; 93005; 94640; 96360; 96361; 99285; A9270; C9803; G0378; J0456; J0696; J7030; U0003; U0005

== ENCOUNTER 2020-04-22 12:04 | Outpatient (CLI) | payer MEDICARE, SELFPAY ==
[2020-04-22 12:54] LABS: Basophils Absolute Auto 0.1 K/mm3 (0.0-0.1); Basophils Percent Auto 0.8 % (0.2-1.2); Eosinophils Absolute Auto 0.2 K/mm3 (0-0.3); Eosinophils Percent Auto 2.7 % (0-4.4); Hematocrit 39.8 % (42.0-52.0); Hemoglobin 13.2 g/dL (14.0-18.0); Immature Granulocyte Absolute 0.08 K/mm3 (0.00-0.031); Immature Granulocyte Percent A 1.2 % (0-0.5); Lymphocytes Absolute Auto 1.07 K/mm3 (0.9-3.2); Lymphocytes Percent Auto 16.1 % (18.3-44.2); Mean Corpuscular HGB Conc 33.2 g/dl (32-36); Mean Corpuscular Hemoglobin 31.7 pg (26-34); Mean Corpuscular Volume 95.4 fl (80-100); Mean Platelet Volume 10.3 fl (7.4-10.4); Monocytes Absolute Auto 1.1 K/mm3 (0.1-0.6); Monocytes Percent Auto 16.1 % (2.6-8.5); Neutrophils Absolute Auto 4.2 K/mm3 (1.3-6.7); Neutrophils Percent Auto 63.1 % (45.5-73.1); Platelet Count Result 205 k/mm3 (150-375); Red Blood Count 4.17 M/mm3 (4.6-6.20); Red Cell Distribution Width 11.9 % (11.5-14.5); White Blood Count 6.6 K/mm3 (4.5-10.0)
== END 2020-04-22 12:05 | disposition home or self-care (01) ==
LOC: ANHLAB 12:06
PROVIDERS: PCP Family Medicine; Visit Provider Physician Assistant
DX: D61.818 Other pancytopenia (principal)
CPT/HCPCS: 36415; 85025

== ENCOUNTER 2021-10-27 08:10 | Emergency (ER) | payer MEDICARE, SELFPAY ==
[2021-10-27 08:18] VITALS: BP 129/79; PULSE 107; RESP 16; TEMP 36.7; O2SAT 99
--- NOTE | 2021-10-27 08:24 | ED.URI ---
HPI - URI/Sore Throat General Chief Complaint: Upper Respiratory Infection Stated Complaint: Cough/Chest Congestion Time Seen by Provider: 10/27/21 08:38 Source: patient and RN notes reviewed Mode of arrival: ambulatory Limitations: no limitations History of Present Illness HPI Narrative: 75-year-old male presents concern for 4-day history of sinus congestion, sore throat, fatigue, occasional cough. He reports he had 2 negative COVID test at home this morning. He reports his neighbor was positive for COVID however he has not spent a lot of time with him. He reports he has been using Tylenol for his symptoms. He denies headache, fever, body aches, sweats. Reports occasional chills. He denies nausea, vomiting, diarrhea. He reports he has been trying to stay hydrated, he was hospitalized in March for YU. MD elicited complaint: sore throat and nasal congestion Related Data Home Medications Medication Instructions Recorded Confirmed allopurinol 300 mg tablet 300 mg PO DAILY 04/07/20 10/27/21 etanercept 50 mg/mL (1 mL) 50 mg subcut WEEKLY 04/07/20 10/27/21 subcutaneous syringe (Enbrel) metoprolol tartrate 25 mg tablet 25 mg PO BID 04/07/20 10/27/21 omega 3-jzc-glo-fish oil 1,200 mg 1 cap PO DAILY 04/07/20 10/27/21 (144 mg-216 mg) capsule (Fish Oil) omeprazole 20 mg tablet,delayed 20 mg PO DAILY 04/07/20 10/27/21 release rivaroxaban 15 mg tablet (Xarelto) 15 mg PO QACDINNER 04/07/20 10/27/21 tamsulosin 0.4 mg capsule 0.4 mg PO DAILY 04/07/20 10/27/21 vitamin B complex (B 1 tablet PO DAILY 04/07/20 10/27/21 Complex-Vitamin B12 tablet) vitamin E (dl, acetate) 180 mg 400 unit PO DAILY 04/07/20 10/27/21 (400 unit) capsule Tylenol 650 mg PO PRN PRN Pain 04/13/20 10/27/21 enalapril maleate 10 mg tablet 10 mg DIRECTED 10/27/21 10/27/21 Allergies Allergy/AdvReac Type Severity Reaction Status Date / Time No Known Allergies Allergy Verified 01/20/21 18:38 Review of Systems Review of Systems: CONSTITUTIONAL: Reports malaise, fatigue, chills. Denies sweats, or fever. EYES: Denies visual changes, redness, or discharge. ENT: Reports rhinorrhea, congestion, and sore throat. Denies sinus pain, otalgia CARDIOVASCULAR: Denies chest pain, palpitations, or edema. RESPIRATORY: Reports occasional cough. Denies dyspnea. GASTROINTESTINAL: Denies abdominal pain, nausea, vomiting, diarrhea SKIN: Denies rash or itching. MUSCULOSKELETAL: Denies myalgia. NEUROLOGIC: Denies headache. All systems reviewed & are unremarkable except as noted in HPI and below PMFSH Past Medical History Medical History (Updated 10/27/21 @ 08:46 by Fany Mckinney NP) A-fib Chronic anticoagulation GERD (gastroesophageal reflux disease) Gout Hypertension Rheumatoid arthritis Surgical History Surgical History (Updated 04/13/20 @ 20:11 by Brittnee Lombardo NP) No pertinent past surgical history Family History Family History (Updated 04/13/20 @ 20:14 by Brittnee Lombardo NP) Mother Hypertension Heart disease Father Heart disease Hypertension Social History Social History (Updated 04/13/20 @ 20:16 by Brittnee Lombardo NP) Social History: The patient is . His nephew Leno Worthington as well as niece Kristi Worthington are the durable power county attorney for the patient. The is currently in rehab for her severe dementia. The patient has no children. The patient desires to be a DNI. He stated that he did not want to be on a ventilator even feels for brief period time. Patient is a former smoker he quit 1998. He does not use any alcohol or illicit drugs. 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 Smoking packs per day: 2 Smoking cigarettes per day: 40.0 Years smoked: 30 Smoking pack-years: 60.00 Smoking status: Former smoker Tobacco type: cigarettes Alcohol intake: current Drinks per week: 3 Substance use: never Substance use type: does not use Gender identity (if verbalized by the patient): Male Sexual Or
== END 2021-10-27 08:51 | disposition home or self-care (01) ==
PROVIDERS: Emergency Provider Nurse Practitioner; PCP Family Medicine
DX: J06.9 Acute upper respiratory infection, unspecified (principal); Z20.822 Contact with and (suspected) exposure to COVID-19; Z87.891 Personal history of nicotine dependence; I48.91 Unspecified atrial fibrillation; K21.9 Gastro-esophageal reflux disease without esophagitis; M10.9 Gout, unspecified; I10 Essential (primary) hypertension; M06.9 Rheumatoid arthritis, unspecified; Z79.01 Long term (current) use of anticoagulants
CPT/HCPCS: 87426; 99213; C9803; G0463

== ENCOUNTER 2022-03-20 08:03 | Emergency (ER) | payer MEDICARE, SELFPAY ==
--- NOTE | ~2022-03-20 | XR_ITS ---
EXAMINATION: XR chest 2V DATE: 03/20/2022 08:31 INDICATION: Cough TECHNIQUE: PA and lateral views of the chest are obtained. COMPARISON: 04/14/2020 FINDINGS: The lungs are free of acute opacities. No pleural effusion or pneumothorax. The cardiomedia stinal silhouette is normal. There is moderate thoracic spondylosis. A calcified nodule right middle lobe is consistent with old granulomatous disease. IMPRESSION: 1. No acute cardiopulmonary abnormality. Reviewed, dictated and finalized at location L. D AIDE
[2022-03-20 08:08] VITALS: BP 138/71; PULSE 53; RESP 20; TEMP 36.8; O2SAT 97
--- NOTE | 2022-03-20 08:10 | ED.URI ---
HPI - URI/Sore Throat General Chief Complaint: Upper Respiratory Infection Stated Complaint: cold flu Time Seen by Provider: 03/20/22 08:14 Source: patient and RN notes reviewed Mode of arrival: ambulatory Limitations: no limitations History of Present Illness HPI Narrative: 76-year-old male presents with concern for 2 week history of cough. He reports and taking Mucinex and Flonase without relief. He reports his cough is productive has worsened over the last 2 weeks he becomes short of breath and feels dizzy with walking. He reports increasing fatigue. He reports sweats, denies fever MD elicited complaint: cough Related Data Home Medications Medication Instructions Recorded Confirmed allopurinol 300 mg tablet 300 mg PO DAILY 04/07/20 03/20/22 etanercept 50 mg/mL (1 mL) 50 mg subcut WEEKLY 04/07/20 03/20/22 subcutaneous syringe (Enbrel) metoprolol tartrate 25 mg tablet 25 mg PO BID 04/07/20 03/20/22 omega 8-nvt-eev-fish oil 1,200 mg 1 cap PO DAILY 04/07/20 03/20/22 (144 mg-216 mg) capsule (Fish Oil) omeprazole 20 mg tablet,delayed 20 mg PO DAILY 04/07/20 03/20/22 release rivaroxaban 15 mg tablet (Xarelto) 15 mg PO QACDINNER 04/07/20 03/20/22 tamsulosin 0.4 mg capsule 0.4 mg PO DAILY 04/07/20 03/20/22 vitamin B complex (B 1 tablet PO DAILY 04/07/20 03/20/22 Complex-Vitamin B12 tablet) vitamin E (dl, acetate) 180 mg 400 unit PO DAILY 04/07/20 03/20/22 (400 unit) capsule Tylenol 650 mg PO PRN PRN Pain 04/13/20 10/27/21 enalapril maleate 10 mg tablet 10 mg DIRECTED 10/27/21 03/20/22 Allergies Allergy/AdvReac Type Severity Reaction Status Date / Time No Known Allergies Allergy Verified 03/20/22 08:16 Review of Systems Review of Systems: CONSTITUTIONAL: Reports malaise, sweats, fatigue EYES: Denies visual changes, redness, or discharge. ENT: Reports mild rhinorrhea, congestion. Denies sinus pain, otalgia and sore throat. CARDIOVASCULAR: Denies chest pain, palpitations, or edema. RESPIRATORY: Reports productive cough, dyspnea. GASTROINTESTINAL: Denies abdominal pain, nausea, vomiting, diarrhea SKIN: Denies rash or itching. MUSCULOSKELETAL: Denies myalgia. NEUROLOGIC: Denies headache. All systems reviewed & are unremarkable except as noted in HPI and below PMFSH Past Medical History Medical History (Updated 03/20/22 @ 08:40 by Fany Mckinney NP) A-fib Chronic anticoagulation GERD (gastroesophageal reflux disease) Gout Hypertension Rheumatoid arthritis Surgical History Surgical History (Updated 04/13/20 @ 20:11 by Brittnee Lombardo NP) No pertinent past surgical history Family History Family History (Updated 04/13/20 @ 20:14 by Brittnee Lombardo NP) Mother Hypertension Heart disease Father Heart disease Hypertension Social History Social History (Updated 04/13/20 @ 20:16 by Brittnee Lombardo NP) Social History: The patient is . His nephew Leno Worthington as well as niece Kristi Worthington are the durable power litigation attorney associate for the patient. The is currently in rehab for her severe dementia. The patient has no children. The patient desires to be a DNI. He stated that he did not want to be on a ventilator even feels for brief period time. Patient is a former smoker he quit 1998. He does not use any alcohol or illicit drugs. 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 Smoking packs per day: 2 Smoking cigarettes per day: 40.0 Years smoked: 30 Smoking pack-years: 60.00 Smoking status: Former smoker Tobacco type: cigarettes Alcohol intake: current Drinks per week: 3 Substance use: never Substance use type: does not use Gender identity (if verbalized by the patient): Male Sexual Orientation (if Verbalized by the Patient): Straight or Heterosexual Spiritual care concerns: No Comments At time of signature, agree with nursing past medical, surgical, social and family history. There is no relevant family history pertinent to the presenting complaint
== END 2022-03-20 08:45 | disposition home or self-care (01) ==
PROVIDERS: Emergency Provider Nurse Practitioner; PCP Family Medicine
DX: J20.9 Acute bronchitis, unspecified (principal); R09.89 Other specified symptoms and signs involving the circulatory and respiratory systems; Z87.891 Personal history of nicotine dependence; I48.91 Unspecified atrial fibrillation; K21.9 Gastro-esophageal reflux disease without esophagitis; I10 Essential (primary) hypertension; M10.9 Gout, unspecified; M06.9 Rheumatoid arthritis, unspecified; Z79.01 Long term (current) use of anticoagulants
CPT/HCPCS: 71046; 99213; G0463

== ENCOUNTER 2023-02-15 08:08 | Emergency (ER) | payer MEDICARE, SELFPAY ==
[2023-02-15 08:15] VITALS: BP 103/73; PULSE 73; RESP 20; TEMP 36.3; O2SAT 97
--- NOTE | 2023-02-15 08:36 | ED.MALEGU ---
HPI - Male Genitourinary General Chief complaint: Urogenital-Male Stated complaint: Poss UTI Time Seen by Provider: 02/15/23 08:36 Source: patient, RN notes reviewed and old records reviewed Mode of arrival: ambulatory Limitations: no limitations History of Present Illness HPI Narrative: 77 year old male presents to express care with complaints of continued urinary burning, urgency, and frequency even after completion of antibiotic (Cipro 250mg BID) his doctor prescribed for 3 days. Patient reports that he completed medication but continues to have symptoms. Patient has been taking OTC Cystex for his symptoms. Patient has copies of recent labs from [facility] and it shows GFR 53 and creatine 1.39 and previous urine dip showing nitrate positive and Leukocytes at 3+ prior to taking the 3 days of Cipro 250 mg BID. Patient continues with symptoms of burning and pain with urination, urgency,frequency and voiding in small amounts. Patient denies any suprapubic discomfort or any CVA tenderness. or any known fevers. MD Complaint: dysuria Onset (ago): day(s) (-) Severity: moderate Associated symptoms: Reports dysuria and other (urgency and frequency, voiding in small amounts) Related Data Home Medications Medication Instructions Recorded Confirmed allopurinol 300 mg tablet 300 mg PO DAILY 04/07/20 02/15/23 etanercept 50 mg/mL (1 mL) 50 mg subcut WEEKLY 04/07/20 02/15/23 subcutaneous syringe (Enbrel) metoprolol tartrate 25 mg tablet 25 mg PO DAILY 04/07/20 02/15/23 omega 3-ffg-dxk-fish oil 1,200 mg 1 cap PO DAILY 04/07/20 02/15/23 (144 mg-216 mg) capsule (Fish Oil) omeprazole 20 mg tablet,delayed 20 mg PO DAILY 04/07/20 02/15/23 release tamsulosin 0.4 mg capsule 0.4 mg PO DAILY 04/07/20 02/15/23 vitamin B complex (B 1 tablet PO DAILY 04/07/20 02/15/23 Complex-Vitamin B12 tablet) vitamin E (dl, acetate) 180 mg 400 unit PO DAILY 04/07/20 02/15/23 (400 unit) capsule enalapril maleate 10 mg tablet 10 mg PO QPM 10/27/21 02/15/23 acetaminophen 325 mg tablet 325 mg PO Q4-6H PRN Pain (Scale 02/15/23 02/15/23 (Tylenol) Score 4-6) rivaroxaban 20 mg tablet (Xarelto) 20 mg PO DAILY 02/15/23 02/15/23 sulfasalazine 500 mg tablet 0.5 g PO BID 02/15/23 02/15/23 tramadol 50 mg tablet 50 mg PO HS 02/15/23 02/15/23 Allergies Allergy/AdvReac Type Severity Reaction Status Date / Time No Known Allergies Allergy Verified 02/15/23 08:24 Review of Systems Review of Systems: CONSTITUTIONAL: Denies fever, chills, or sweats. CARDIOVASCULAR: Denies chest pain, palpitations, or edema. RESPIRATORY: Denies cough or dyspnea. GASTROINTESTINAL: Denies abdominal pain, nausea, vomiting, or diarrhea. GENITOURINARY: Reports dysuria, frequency, urgency. Denies flank pain or visible hematuria. SKIN: Denies rash or itching. MUSCULOSKELETAL: Denies back pain or myalgia. Denies CVA tenderness NEUROLOGIC: Denies headache All systems reviewed & are unremarkable except as noted in HPI and below PMFSH Past Medical History Medical History A-fib Chronic anticoagulation GERD (gastroesophageal reflux disease) Gout Hypertension Rheumatoid arthritis Surgical History Surgical History No pertinent past surgical history Family History Family History Mother Hypertension Heart disease Father Heart disease Hypertension Social History Social History Social History: The patient is . His nephew Leno Worthington as well as niece Kristi Worthington are the durable power estate attorney for the patient. The is currently in rehab for her severe dementia. The patient has no children. The patient desires to be a DNI. He stated that he did not want to be on a ventilator even feels for brief period time. Patient is a former smoker he quit 1998.
== END 2023-02-15 08:50 | disposition home or self-care (01) ==
PROVIDERS: Emergency Provider Registered Nurse; PCP Family Medicine
DX: N39.0 Urinary tract infection, site not specified (principal); Z87.891 Personal history of nicotine dependence; I48.91 Unspecified atrial fibrillation; K21.9 Gastro-esophageal reflux disease without esophagitis; M10.9 Gout, unspecified; I10 Essential (primary) hypertension; M06.9 Rheumatoid arthritis, unspecified; Z79.01 Long term (current) use of anticoagulants
CPT/HCPCS: 81003; 87086; 99213; G0463

== ENCOUNTER → 2023-05-13 16:12 | Outpatient (CLI) | payer MEDICARE, SELFPAY ==
--- NOTE | ~2023-05-13 | XR_ITS ---
AP view of the pelvis and AP and lateral views of the bilateral hips Clinical history: Pain Findings: No acute fracture or dislocation is seen. Osseous alignment is anatomic. There is mild dege nerative change of both hip joints, with spurring at the superolateral acetabular margins. Soft tissu es are unremarkable. Impression: Mild degenerative change of both hips. Reviewed, dictated and finalized at location . 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
== END ==
PROVIDERS: PCP Family Medicine; Visit Provider Anesthesiology Pain Medicine
DX: M06.9 Rheumatoid arthritis, unspecified (principal); M16.0 Bilateral primary osteoarthritis of hip
CPT/HCPCS: 73521

== ENCOUNTER → 2023-05-22 09:29 | Outpatient (CLI) | payer MEDICARE, SELFPAY ==
--- NOTE | ~2023-05-22 | MR_ITS ---
EXAMINATION: MR lumbar spine wo con DATE: 05/22/2023 10:18 INDICATION: Spinal stenosis, lumbar region with neurogenic claudication. Low back pain radiating to t he left buttock. TECHNIQUE: Magnetic resonance imaging (MRI) of the lumbar spine was performed without intravenous con trast. Sequences included sagittal T2-weighted FSE, sagittal T2-weighted FS FSE, sagittal T1-weighted FSE, and axial T2-weighted FSE. COMPARISON: None FINDINGS: There are innumerable cysts in each kidney measuring up to 12.0 cm on the right. There is 3 degrees dextrocurvature of lumbar spine. There is mild chronic anterior wedging of T12 and L1 verteb ral bodies, likely physiologic. There is mildly decreased disc height at L3-L4, moderately decreased disc height at L4-L5, and mildly decreased disc height at L5-S1. The distal spinal cord signal intens ity is normal. The conus medullaris is at L1. The following disc levels are specifically discussed: L1-L2: The disc does not extend beyond the endplate margin. There is mild bilateral facet joint osteo arthritis. There is no neural foraminal stenosis. There is no central canal stenosis. L2-L3: The disc does not extend beyond the endplate margin. There is moderate bilateral facet joint o steoarthritis. There is no neural foraminal stenosis. There is no central canal stenosis. L3-L4: The disc is bulging and has an annular fissure. There is mild bilateral facet joint osteoarthr itis. There is mild bilateral neural foraminal stenosis. There is mild central canal stenosis. L4-L5: The disc is bulging and has an annular fissure. There is moderate bilateral facet joint osteoa rthritis. There is mild bilateral neural foraminal stenosis. There is mild central canal stenosis. L5-S1: The disc is bulging and has an annular fissure. There is moderate bilateral facet joint osteoa rthritis. There is mild bilateral neural foraminal stenosis. There is mild central canal stenosis. IMPRESSION: 1. Moderate lumbar spondylosis. 2. Polycystic kidney disease. Reviewed, dictated and finalized at location A. OMER CARE COORDINATOR
== END ==
PROVIDERS: PCP Family Medicine; Visit Provider Anesthesiology Pain Medicine
DX: M48.062 Spinal stenosis, lumbar region with neurogenic claudication (principal); M54.17 Radiculopathy, lumbosacral region
CPT/HCPCS: 72148

== ENCOUNTER 2023-05-28 09:46 | Day surgery (SDC) | payer MEDICARE, SELFPAY ==
--- NOTE | ~2023-05-28 | XR_ITS ---
EXAMINATION: XR fluoroscopy no charge DATE: 05/28/2023 13:17 INDICATION: Left sacroiliac joint injection TECHNIQUE: 4 fluoroscopic images of the left sacral iliac joint were obtained during procedure perfor med by Dr. Oliveros. Radiologist was not present for the imaging or procedure. The amount of fluoroscopy time used during this procedure was 0.2 minutes. COMPARISON: None. FINDINGS/IMPRESSION: Images demonstrate the tip of a spinal needle projecting over the left sacroiliac joint. See procedur e note for further detail. Reviewed, dictated and finalized at location A. TTING COUNSELOR
[2023-05-28 10:37] VITALS: BP 163/103; PULSE 80; RESP 14; TEMP 36.3; O2SAT 98
--- NOTE | 2023-05-28 10:53 | WPDHPUPDATE1 ---
History and Physical Update Update Date/Time: 05/28/23 10:53 History and Physical has been reviewed, including an updated exam of the patient. There are NO changes in the patient's condition. Risks, benefits, and alternatives have been discussed and questions answered. Patient agrees to proceed with procedure.
--- NOTE | 2023-05-28 10:54 | W.PM.PROC2 ---
Procedure Note - Detailed Date of Procedure 05/28/23 Pre-op Diagnosis Sacroiliitis, not elsewhere classified, dorsalgia Post-op Diagnosis Same Procedure Performed left intra-articular sacroiliac joint steroid injection under fluoroscopic guidance with contrast control. Surgeon Pasha Oliveros MD Anesthesia Local Description of Procedure INFORMED CONSENT: Risks, benefits and alternatives to the procedure were discussed in detail with the patient who expressed explicit understanding and consent to proceed. Patient was informed verbally and in written form regarding the risks associated with the procedure including the low risk of serious infection, bleeding/bruising, allergic reaction, nerve or organ injury, paralysis, procedural site pain or discomfort, worsening pain and/or mobility, failure to treat and/or disfigurement. The patient expressed explicit understanding and consent to proceed. All materials required for the procedure were available prior to procedure start. Site and side were marked prior to procedure and confirmed in the presence of the patient. PROCEDURE IN DETAIL: The patient was brought to the procedural suite and placed in the prone position. Patient was made comfortable with use of pillows under the head/chest, hips and ankles. Skin overlying the injection site on the affected side(s) was prepared broadly with ChloraPrep applicator and draped in a sterile manner. Aseptic technique was used throughout. The SI joint was identified in the AP view and contralateral oblique angulation with caudal tilt was utilized to optimize visualization of the inferior and medial joint line representing the posterior portion of the joint. Local anesthesia was established by infiltration with approximately 5 mL of 2% lidocaine via a 1-1/2 inch 27-gauge needle. A 22-gauge 3.5 inch Quincke spinal needle was advanced until the needle entered the inferior third of the joint space approximately 1cm cephalad from its most inferior point. In the AP view, 0.5 mL of Omnipaque 300 contrast medium was injected after negative aspiration for CSF, blood or other bodily fluid, showing appropriate intra-articular spread of contrast without evidence of intravascular, perineural or intrathecal placement. A 1.5 mL solution containing 6 mg of betamethasone in 0.5% PF bupivacaine was injected after repeat negative aspiration. Appropriate spread of the injectate was confirmed with washout of previous injected contrast. No parasthesias were elicited. Needle was removed completely intact without difficulty. Images were saved and documented in the patient chart. Patient's skin was cleansed and sterile bandage applied. The patient tolerated the procedure well. The patient was transported to the recovery area in stable condition where they were observed for an appropriate amount of time prior to discharge, without evidence of complication. The patient was instructed to avoid excessive activity for the next 48 hours, including climbing and frequent use of stairs. Showers only for 48 hours. They were instructed not to drive or operate heavy machinery for 24 hours. They are to monitor for severe headaches, fevers, chills, night sweats, erythema/swelling at the site or any other signs of infection, bleeding/bruising, bowel or bladder changes as well as new pain, weakness or numbness in the upper or lower extremity. Should they notice these changes, they are instructed to call our office immediately or report directly to the nearest Emergency Department if no answer or if after posted office hours. COMPLICATIONS: None COMMENTS: None CONTRAST WASTED: 29.5 mL Omnipaque 300. Complications No immediate complications Condition Stable Disposition Same day [facility] Billing Surgery - Charge Forward: Surgery Billing
[2023-05-28 11:04] VITALS: BP 181/112; PULSE 100; RESP 18; O2SAT 63
[2023-05-28] MEDS: BETAMETHASONE SODIUM PHOSPHATE PF INJ 6 MG/ML VIAL INFILTRATE (11:10)
[2023-05-28] MEDS: BUPivacaine HCL 0.5% 10 ML AMP INFILTRATE (11:10)
[2023-05-28] MEDS: LIDOCAINE HCL 1% PF INJ 5 ML VIAL 1.5 ML XX (11:10)
[2023-05-28 11:17] VITALS: BP 169/99; PULSE 62; RESP 16; O2SAT 98
== END 2023-05-28 11:32 | disposition home or self-care (01) ==
PROVIDERS: PCP Family Medicine; Visit Provider Anesthesiology Pain Medicine
PROC: (CPT G0260; principal; 2023-05-28 11:30)
DX: M46.1 Sacroiliitis, not elsewhere classified (principal); M54.59 Other low back pain
CPT/HCPCS: G0260; 27096; 99199

== ENCOUNTER 2023-06-25 12:17 | Day surgery (SDC) | payer MEDICARE, SELFPAY ==
[2023-06-17 10:36] VITALS: BMI 27.7
--- NOTE | ~2023-06-25 | XR_ITS ---
EXAMINATION: XR fluoroscopy no charge DATE: 06/25/2023 15:46 INDICATION: Left sacroiliac joint block TECHNIQUE: 13 fluoroscopic images of the left sacroiliac joint were obtained during procedure perform ed by Dr. Oliveros. Radiologist was not present for the imaging or procedure. The amount of fluoroscopy t mac used during this procedure was 0.8 minutes. FINDINGS/IMPRESSION: Images demonstrate the tip of spinal needle and injected contrast projecting wit hin the left sacroiliac joint. See procedure note for further detail. Reviewed, dictated and finalized at location A.
[2023-06-25 13:32] VITALS: BP 151/93; PULSE 64; RESP 18; TEMP 36.3; O2SAT 98
[2023-06-25 13:34] VITALS: BMI 29.4
--- NOTE | 2023-06-25 14:23 | WPDHPUPDATE1 ---
History and Physical Update Update Date/Time: 06/25/23 14:23 History and Physical has been reviewed, including an updated exam of the patient. There are NO changes in the patient's condition. Risks, benefits, and alternatives have been discussed and questions answered. Patient agrees to proceed with procedure.
--- NOTE | 2023-06-25 14:24 | W.PM.PROC2 ---
Procedure Note - Detailed Date of Procedure 06/25/23 Pre-op Diagnosis Sacroiliitis, Dorsalgia, Chronic Pain Post-op Diagnosis Same Procedure Performed Diagnostic/Prognostic Block of the left Sacroiliac Joint by Intra-Articular Injection of Local Anesthetic Under Fluoroscopic Guidance and With Contrast Control. Surgeon Pasha Oliveros MD Anesthesia Local ([Local anesthetic infiltration] in the prone position.) Description of Procedure INFORMED CONSENT: Risks, benefits and alternatives to the procedure were discussed in detail with the patient who expressed explicit understanding and consent to proceed. Patient was informed verbally and in written form regarding the risks associated with the procedure including the low risk of serious infection, bleeding/bruising, allergic reaction, local anesthetic toxicity, nerve or organ injury, paralysis, procedural site pain or discomfort, worsening pain and/or mobility, failure to treat and/or disfigurement. The patient expressed explicit understanding and consent to proceed. All materials required for the procedure were available prior to procedure start. Site and side were marked prior to procedure and confirmed in the presence of the patient. PROCEDURE IN DETAIL: The patient was brought to the procedural suite and placed in the prone position. Patient was made comfortable with use of pillows under the head/chest, hips and ankles. Skin overlying the injection site on the affected side was prepared broadly with ChloraPrep applicator and draped in a sterile manner. Aseptic technique was used throughout. The SI joint was identified in the AP view and contralateral oblique angulation with caudal tilt was utilized to optimize visualization of the inferior and medial joint line representing the posterior joint space. Local anesthesia was established by infiltration with approximately 5 mL of 2% PF lidocaine via a 1-1/2 inch 27-gauge needle. A 22-gauge 3.5 inch Quincke spinal needle was advanced until the needle entered the inferior third of the posterior joint space approximately 1cm cephalad from its most inferior point. Appropriate final needle position was confirmed in the AP, lateral and oblique views. In the oblique view, 0.5 mL of Omnipaque 300 contrast medium was injected after negative aspiration for CSF, blood or other bodily fluid, showing appropriate intra-articular spread of contrast without evidence of intravascular, perineural or intrathecal placement. 1.5 mL of 0.5% PF bupivacaine was injected after repeat negative aspiration. Appropriate spread of the injectate was confirmed with washout of previous injected contrast. No parasthesias were elicited. Needle was removed completely intact without difficulty. Images were saved and documented in the patient chart. Patient's skin was cleansed and sterile bandage applied. The patient tolerated the procedure well. The patient was transported to the recovery area in stable condition where they were observed for an appropriate amount of time prior to discharge, without evidence of complication. The patient was instructed to avoid excessive activity for the next 48 hours, including climbing and frequent use of stairs. Showers only for 48 hours. They were instructed not to drive or operate heavy machinery for 24 hours. They are to monitor for severe headaches, fevers, chills, night sweats, erythema/swelling at the site or any other signs of infection, bleeding/bruising, bowel or bladder changes as well as new pain, weakness or numbness in the upper or lower extremity. Should they notice these changes, they are instructed to call our office immediately or report directly to the nearest Emergency Department if no answer or if after posted office hours. COMPLICATIONS: None. COMMENTS: None CONTRAST WASTED: 29.5 mL Omnipaque 300. Complications No immediate complications Condition Stable Disposition Same day [facility] Billing Surgery - Charge Forward: Surgery Billing
[2023-06-25 14:46] VITALS: BP 162/85; PULSE 88; RESP 16; O2SAT 96
[2023-06-25 14:56] VITALS: BP 145/88; PULSE 86; RESP 16; O2SAT 96
[2023-06-25] MEDS: LIDOCAINE HCL 1% PF INJ 5 ML VIAL 1 ML XX (14:56)
[2023-06-25] MEDS: BUPivacaine HCL 0.5% 10 ML AMP INFILTRATE (14:57)
[2023-06-25 15:00] VITALS: BP 150/89; PULSE 86; RESP 16; O2SAT 98
== END 2023-06-25 15:15 | disposition home or self-care (01) ==
PROVIDERS: PCP Family Medicine; Visit Provider Anesthesiology Pain Medicine
PROC: (CPT G0260; principal; 2023-06-25 13:30)
DX: M46.1 Sacroiliitis, not elsewhere classified (principal); M54.9 Dorsalgia, unspecified; G89.4 Chronic pain syndrome
CPT/HCPCS: G0260; 27096; 99199

== ENCOUNTER 2023-07-09 12:52 | Outpatient (CLI) | payer MEDICARE, SELFPAY ==
--- NOTE | ~2023-07-09 | CT_ITS ---
EXAMINATION: CT pelvis wo con DATE: 07/09/2023 13:09 INDICATION: Dorsalgia and inflammation of the sacroiliac joints. TECHNIQUE: High resolution computed tomography (CT) of the pelvis was performed without intravenous c ontrast. Additional sagittal and coronal reconstructions were performed. Automated exposure control a nd iterative reconstruction technique were employed. The dose-length product was 575.81 mGy-cm. COMPARISON: Radiographs dated 05/13/2023 FINDINGS: There are multiple cysts arising from the lower pole of the left kidney measuring up to 7.5 cm. There is 15 cm cyst at the contralateral right lower quadrant likely exophytic cyst arising from the nonvi sualized right kidney. There is mild diverticulosis along the sigmoid colon without adjacent from tra ce stranding to suggest diverticulitis. Remainder of the visualized bowels are unremarkable with no o bstruction. There is diffuse mild bladder wall thickening which may relate to chronic outlet obstruct ion from the enlarged prostate which measures 5.4 x 4.0 cm. There is increased fat within the bilater al inguinal canals which could be related to body habitus or moderate-sized fat-containing bilateral inguinal hernias. No free fluid in the pelvis. No pathologically enlarged pelvic or inguinal lymphade nopathy. Lower lumbar spondylosis with moderate disc height loss with vacuum phenomena at L4-L5. Mild bilateral sacroiliac osteoarthritis with bridging osteophytes across the anterior margin of the join t space. No erosions to suggest an inflammatory sacroiliitis. Mild bilateral hip osteoarthritis. IMPRESSION: 1. Degenerative skeletal changes including moderate lower lumbar spondylosis and mild bilateral hip a nd sacroiliac osteoarthritis. No erosions to suggest an inflammatory sacroiliitis. 2. Mild sigmoid diverticulosis. 3. Diffuse mild bladder wall thickening which could be related to chronic outlet obstruction from enl arged prostate. 4. Prominent cysts at the lower poles of the kidneys which could be seen with abnormal dominant polyc ystic kidney disease. Reviewed, dictated and finalized at location A. IMPRESSION: 1. Degenerative skeletal changes including moderate lower lumbar spondylosis an d mild bilateral hip and sacroiliac osteoarthritis. No erosions to suggest an i nflammatory sacroiliitis. 2. Mild sigmoid diverticulosis. 3. Diffuse mild bladder wall thickening which could be related to chronic outle t obstruction from enlarged prostate. 4. Prominent cysts at the lower poles of the kidneys which could be seen with a bnormal dominant polycystic kidney disease.
== END 2023-07-09 12:53 ==
LOC: GOSHIMG 12:53
PROVIDERS: PCP Family Medicine; Visit Provider Anesthesiology Pain Medicine
DX: M25.559 Pain in unspecified hip (principal); M46.1 Sacroiliitis, not elsewhere classified; M54.9 Dorsalgia, unspecified; K57.30 Diverticulosis of large intestine without perforation or abscess without bleeding
CPT/HCPCS: 72192

== ENCOUNTER 2023-07-18 09:00 | Outpatient (RCR) | payer MEDICARE, SELFPAY ==
--- NOTE | 2023-06-24 08:55 | PTOPEVAL1 ---
Assessment and note entered by Quirino Sykes, PT, DPT Evaluation Information Assessment Status Evaluation Diagnosis low back pain, spinal stenosis Onset 6 months Subjective Information Pt reports L sided low back pain, around the SIJ. He states he has gotten this pain intermittently over the last 35 years. He states he got an injection 3 weeks ago without much relief, he states he is getting an injection tomorrow as well as thinks this is a nerve marla. He states the pain is worse when he is standing still, especially on hard ground, walking can increase his pain as well. He states his pain is relieved when he sits or lays down. Reports intermittent radicular pain down the side of his leg to his knee. Reported Pain Level Pain Score 0: Self Report Assessment PT Clinical Summary Jose Guadalupe presents to therapy today for his initial evaluation with a diagnosis of low back pain. Today he demonstrates pelvic asymmetries, hip abduction weakness, and decreased lumbar and hip mobility. He ambulates with an increased heel strike on the R and stands with an anterior pelvis and forward weight shift. Skilled therapy services are indicated to address the deficits noted above, to manage pain, and to improve overall function. Plan of Care Interventions Electrical Stimulation,Gait Training,Hot Pack/Cold Pack,Manual Therapy,Neuro Re-education,Patient/ Caregiver Educati,Therapeutic Activities, Therapeutic Exercise PT Services Indicated Yes Treatment Frequency and 2x/wk for 8 visits Duration These treatments will address the objective and functional deficits as defined above. The patient will be advanced safely and appropriately in order for the patient to progress towards his/her prior level of function. Additional exercises will be introduced and as well as a comprehensive home exercise program upon discharge, if needed, ?to ensure carryover of functional gains achieved in the clinic. This treatment plan has been reviewed and agreement upon by the patient.
--- NOTE | 2023-06-24 08:55 | OPREHPOC ---
Outpatient Therapy Plan of Care This is a Multidisciplinary Plan of Care that may contain components documented by all disciplines (PT, OT, and ST.) PT Problem 1 PT Problem #1 Knowledge Deficit PT Goal 1 Goal Pt to be IND with issued HEP Target Visit 8 PT Problem 2 PT Problem #2 Pain PT Goal 1 Goal Pt to report back pain no greater than 3/10 in the last week. Target Visit 8 PT Goal 2 Goal Pt to report 75% improvement in overall symptoms. Target Visit 8 PT Problem 3 PT Problem #3 Impaired Range of Motion PT Goal 1 Goal Pt to demonstrate passive hamstring ROM to -30 deg Target Visit 8 PT Goal 2 Goal Pt to improve passive hip flexion to 120 deg Target Visit 8 PT Problem 4 PT Problem #4 Impaired Functional Mobil PT Goal 1 Goal Pt to report being able to stand for 30 mins prior to needing to sit down/ Target Visit 8 PT Goal 2 Goal Pt to demonstrate a 30lb lift and carry from ground level Target Visit 8
--- NOTE | 2023-07-18 09:49 | PTOPDC ---
Assessment and note entered by Quirino Sykes, PT, DPT Evaluation Information Assessment Status Discharge Diagnosis low back pain, spinal stenosis Onset 6 months Subjective Information Pt states it feels like his back has gotten better but is not 100%. He states if feels like he can move longer before he has an increase in pain. Pt states he is planning on getting surgery as soon as his doctor gets insurance approval. Reported Pain Level Pain Score 4: Self Report Assessment PT Clinical Summary Jose Guadalupe presents to therapy today for his progress report following 8 visits of skilled therapy to treat his diagnosis of low back pain. Today he continues to demonstrate pelvic asymmetries and decreased lumbar mobility. His hip mobility has improved as has his hip strength. Pt states he would like to continue his HEP IND until he is eligible for surgery. Pt will be d/c'ed at this time per his request.
== END 2023-07-18 13:20 | disposition home or self-care (01) ==
LOC: ANHGOSHPT 09:00
PROVIDERS: PCP Family Medicine; Visit Provider Anesthesiology Pain Medicine
DX: M48.062 Spinal stenosis, lumbar region with neurogenic claudication (principal); M46.1 Sacroiliitis, not elsewhere classified; M54.9 Dorsalgia, unspecified; G89.29 Other chronic pain
CPT/HCPCS: 97014; 97110; 97112; 97140; 97161; 97530; G0283